=== PATIENT | male | born 1940 | race Caucasian/White ===

== ENCOUNTER 2018-09-29 09:07 | Outpatient (CLI) | payer OTHER, SELFPAY ==
[2018-09-29 12:23] LABS: Anion Gap 13.1 mmol/L (3-11); BUN 15 mg/dL (7-18); C-Reactive Protein 0.16 mg/dL (0.0-0.3); CO2 26.9 mmol/L (21.0-32.0); CREATININE 1.11 mg/dL (0.70-1.30); Chloride 102 mmol/L (98-107); Glucose 120 mg/dL (70-100); Potassium 3.8 mmol/L (3.5-5.1); Sodium 142 mmol/L (136-145); TSH 2.04 uIU/mL (0.358-3.74)
[2018-09-29 12:54] LABS: ESR 20 MM/HR (1-20)
== END 2018-09-29 09:27 ==
PROVIDERS: PCP Emergency Medicine; Visit Provider Emergency Medicine
DX: Z00.00 Encounter for general adult medical examination without abnormal findings
CPT/HCPCS: 36415; 80048; 85652; 84443; 86140

== ENCOUNTER 2018-12-27 14:40 | Outpatient (CLI) | payer OTHER, SELFPAY ==
[2018-12-27 15:32] LABS: HCT 38.4 % (40.0-50.0); Mean Corp. HGB Concentration 33.9 g/dL (32.0-36.0); Mean Corpuscular Hemoglobin 30.9 pg (27.0-33.0); Mean Corpuscular Volume 91.2 fL (80-95); Mean Platelet Volume 9.5 fL (8.0-11.0); Platelet Count 204 x1000/uL (130-400); RBC 4.21 m/cumm (4.50-6.00); White Blood Cell Count 5.74 k/cumm (4.4-10.8)
[2018-12-27 16:03] LABS: ALT 19 U/L (12-78); AST 18 U/L (15-37); Albumin 3.5 g/dL (3.4-5.0); Alkaline Phosphatase 77 U/L (46-116); Amylase 44 U/L (25-115); Anion Gap 7.3 mmol/L (3-11); BUN 15 mg/dL (7-18); Bilirubin, Total 0.4 mg/dL (0.2-1.0); CO2 27.7 mmol/L (21.0-32.0); CREATININE 1.05 mg/dL (0.70-1.30); Calcium 8.5 mg/dL (8.5-10.1); Chloride 102 mmol/L (98-107); Glucose 87 mg/dL (70-100); Lipase 146 U/L (73-393); Potassium 3.8 mmol/L (3.5-5.1); Sodium 137 mmol/L (136-145); Total Protein 6.6 g/dL (6.4-8.2)
== END 2018-12-27 15:00 ==
PROVIDERS: PCP Emergency Medicine; Visit Provider Emergency Medicine
DX: K21.9 Gastro-esophageal reflux disease without esophagitis (principal); R10.13 Epigastric pain; I10 Essential (primary) hypertension
CPT/HCPCS: 36415; 80053; 83690; 85027; 82150

== ENCOUNTER 2019-01-02 00:48 | Outpatient (CLI) | payer OTHER, SELFPAY ==
--- NOTE | 2019-01-02 08:22 | DI.CT_ITS ---
SYMPTOM/DIAGNOSIS: ABD PAIN, ABNL WT LOSS, GERD, R63.4, K21.[address]: CT scan of the abdomen and pelvis was performed following the uneventful administration of intravenous and oral contrast material. There are no priors for comparison. Comparison ultrasound is 01/08/14. Cardiomegaly is present. The dome of the liver was not included on the examination. Mild dependent atelectatic changes are seen in the lung bases. The visualized portions of the liver are unremarkable. No evidence of a hepatic mass is seen. The portal, superior mesenteric and splenic veins are patent. The patient is status post cholecystectomy. No biliary ductal dilatation is present. The pancreas is unremarkable as are the spleen and adrenal glands. The largest simple cyst is seen in the lower pole of the right kidney and measures 7.3 cm. transverse by 5.6 cm. AP. There is a complex cyst seen in the lower pole of the left kidney measuring 3.4 cm. transverse by 3.3 cm. AP. It is not homogeneously of low density and a solid mass cannot be excluded. There is a cyst in the mid pole of the left kidney measuring 3.2 by 3 cm. with thin linear calcifications in the wall. No evidence of renal obstruction is seen. The urinary bladder is intact. There is diffuse thickening of the wall of the urinary bladder. This may in part be due to decreased distension however inflammatory process or chronic changes cannot be excluded. Reproductive organs are unremarkable. There is atherosclerosis of the abdominal aorta. No aneurysmal dilatation is present. No significant abdominal or pelvic adenopathy, ascites or pneumoperitoneum is present. The bowel shows no evidence of obstruction or inflammation. No findings to suggest an acute appendicitis are present. There is a fat containing left inguinal hernia. Moderately severe degenerative changes are present throughout the lumbar spine resulting in multi level central spinal canal and neural foraminal stenosis. IMPRESSION: 1. 3.4 by 3.3 cm. complex, partially solid mass arising from the inferior pole of the left kidney. MRI with and without contrast of the kidneys shoud be considered for further evaluation. 2. Bilateral renal cysts. 3. Thickening of the wall of the urinary bladder. An acute inflammatory or infectious process cannot be excluded. Chronic bladder wall thickening should also be considered. If further imaging is warranted, cystoscopy or cystography should be considered. 4. Moderately severe degenerative changes in the lumbar spine resulting in multi level central spinal canal and neural foraminal stenosis.
[2019-01-02] MEDS: Omnipaque 350 MG/ML 100 ML BTL IJ (09:52)
== END 2019-01-02 01:08 ==
PROVIDERS: PCP Emergency Medicine; Visit Provider Emergency Medicine
DX: R10.9 Unspecified abdominal pain (principal); N28.89 Other specified disorders of kidney and ureter; N28.1 Cyst of kidney, acquired; N32.9 Bladder disorder, unspecified; I51.7 Cardiomegaly; Z90.49 Acquired absence of other specified parts of digestive tract; R63.4 Abnormal weight loss; K21.9 Gastro-esophageal reflux disease without esophagitis
CPT/HCPCS: 74177; J3490

== ENCOUNTER → 2019-01-11 10:57 | Outpatient (BNVA) | payer OTHER, SELFPAY | PROVIDERS: PCP Emergency Medicine; Referring Provider Emergency Medicine; Visit Provider Physical Therapy Assistant | DX: K21.9 Gastro-esophageal reflux disease without esophagitis (principal); I10 Essential (primary) hypertension | CPT/HCPCS: 99213 ==

== ENCOUNTER 2019-01-16 07:04 | Day surgery (SDC) | payer OTHER, SELFPAY ==
--- NOTE | 2019-01-16 06:44 | W.PM.ENDDOP ---
Date of service: 01/16/19 Time of Service: 08:03 Endoscopy Report DATE OF PROCEDURE: 01/16/19 PRE-OP DIAGNOSIS: Dysphagia POST-OP DIAGNOSIS: other (Mild inflammation of the stomach and esophagus) PROCEDURE: EGD with biopsies SURGEON: Kavitha Harrington ANESTHESIA: other (General/ ASA 2/ Je Yeung, LUCIANA) ESTIMATED BLOOD LOSS: 3 PATHOLOGY: other (antrum bx, GE junction bx) COMPLICATIONS: None DISPOSITION: same day INDICATIONS: Mr. Galdamez is a pleasant 78 year old male who was seen in the office with complaints of dysphagia. He takes Omeprazole 20 mg BID. Risks, benefits and complications have been reviewed. Complications include but are not limited to bleeding, pain, perforation, sore throat, aspiration, and adverse reaction to the medications. Questions were entertained and answered to their satisfaction and they wished to proceed. No guarantees were given or implied. PROCEDURE START TIME: 08:03 PROCEDURE END TIME: 08:09 FINDINGS: Mild inflammation of the stomach and esophagus. Doubt that this is causing his dysphagia. PROCEDURE DESCRIPTION: After informed consent was obtained the patient was take to the procedure room and placed in a supine position. Monitors were applied and a time out was done. The patients name, date of , procedure type, allergies to medications and metal in their body was reviewed. A bite block was placed and the patient was sedated. Once sedated and comfortable the gastroscope was advanced through the oropharynx which was grossly normal into the esophagus. The proximal and mid-esophagus were normal. In the distal esophagus there was very mild inflammation noted. The scope was advanced into the stomach and through the pylorus into the 3rd portion of the duodenum. The duodenum was noted to be normal. The scope was retracted back into the stomach and biopsies were done to rule out H. pylori. There was minimal inflammation noted. There were no ulcers. The scope was retro-flexed. The cardia and fundus were noted to be normal. There was no hiatal hernia noted. The scope was retracted back into the esophagus and biopsies were done of the GE junction to rule out Shields's. The Z line was regular. The GE junction was at 42 cm. The scope was removed and the patient was woken up and taken back to [facility] in stable condition. Follow up: with Dr. Hylton. If continues to have dysphagia recommend a swallowing study. Continue on Omeprazole 20 mg daily.
--- NOTE | 2019-01-16 06:47 | ENDO_ITS ---
Date of service: 01/16/19 Time of Service: 08:03 Endoscopy Report DATE OF PROCEDURE: 01/16/19 PRE-OP DIAGNOSIS: Dysphagia POST-OP DIAGNOSIS: other (Mild inflammation of the stomach and esophagus) PROCEDURE: EGD with biopsies SURGEON: Kavitha Harrington ANESTHESIA: other (General/ ASA 2/ Je Yeung, LUCIANA) ESTIMATED BLOOD LOSS: 3 PATHOLOGY: other (antrum bx, GE junction bx) COMPLICATIONS: None DISPOSITION: same day INDICATIONS: Mr. Galdamez is a pleasant 78 year old male who was seen in the office with complaints of dysphagia. He takes Omeprazole 20 mg BID. Risks, benefits and complications have been reviewed. Complications include but are not limited to bleeding, pain, perforation, sore throat, aspiration, and adverse reaction to the medications. Questions were entertained and answered to their satisfaction and they wished to proceed. No guarantees were given or implied. PROCEDURE START TIME: 08:03 PROCEDURE END TIME: 08:09 FINDINGS: Mild inflammation of the stomach and esophagus. Doubt that this is causing his dysphagia. PROCEDURE DESCRIPTION: After informed consent was obtained the patient was take to the procedure room and placed in a supine position. Monitors were applied and a time out was done. The patients name, date of , procedure type, allergies to medications and metal in their body was reviewed. A bite block was placed and the patient was sedated. Once sedated and comfortable the gastroscope was advanced through the oropharynx which was grossly normal into the esophagus. The proximal and mid- esophagus were normal. In the distal esophagus there was very mild inflammation noted. The scope was advanced into the stomach and through the pylorus into the 3rd portion of the duodenum. The duodenum was noted to be normal. The scope was retracted back into the stomach and biopsies were done to rule out H. pylori. There was minimal inflammation noted. There were no ulcers. The scope was retro-flexed. The cardia and fundus were noted to be normal. There was no hiatal hernia noted. The scope was retracted back into the esophagus and biopsies were done of the GE junction to rule out Shields's. The Z line was regular. The GE junction was at 42 cm. The scope was removed and the patient was woken up and taken back to [facility] in stable condition. Follow up: with Dr. Hylton. If continues to have dysphagia recommend a swallowing study. Continue on Omeprazole 20 mg daily.
--- NOTE | 2019-01-16 06:47 | W.PM.DSUDISC ---
Discharge Plan Disposition Patient Disposition: HOME Condition: Good Discharge Details Reason For Visit: Dysphagia Attending Provider: Kavitha Harrington Primary Care Provider: Tristin Hylton Home Meds and New Rx's Prescriptions: Continued glucosamine sulfate 1,000 MG capsule 1,000 mg PO BID RF: 0 CENTRUM SILVER TABLET 1 EACH tablet 1 tab PO DAILY RF: 0 levothyroxine [Synthroid] 50 MCG tablet 50 mcg PO DAILY Qty: 90 RF: 4 simvastatin [Zocor] 20 MG tablet 20 mg PO DAILY Qty: 90 RF: 4 hydrochlorothiazide 25 MG tablet 25 mg PO DAILY Qty: 90 RF: 4 acetaminophen [Tylenol Extra Strength] 500 MG tablet 2 tab PO daily prn RF: 0 omeprazole 20 mg capsule,delayed release(DR/EC) 20 mg PO BID Qty: 180 RF: 3 triamcinolone acetonide 0.1 % ointment 1 applic Topical BID Qty: 80 RF: 3 ketoconazole 2 % cream 1 applic Topical BID Qty: 60 RF: 3 lisinopril 40 mg tablet 40 mg PO DAILY Qty: 90 RF: 3 polyethylene glycol 3350 [Miralax] 17 gram Powder In Packet 17 g PO DAILY RF: 0 Metamucil 3.4 gram/5.4 gram Powder 1 tbsp PO DAILY RF: 0 Discharge Instructions Instructions: Upper Endoscopy (DC) Additional Instructions: Findings: very mild inflammation of the stomach Follow up: with Dr. Hylton Please call if you develop: fevers >101.5 Nausea or Vomiting Abdominal pain that is not transient DAY SURGERY UNIT POST COLONOSCOPY INSTRUCTIONS 1. Because there will be medication in your system for the next 24 hours, you may feel a little sleepy. Your coordination will be affected. Therefore: a. Do not drive or operate dangerous equipment for 24 hours. b. Do not drink alcohol beverages for 24 hours (not even beer). c. Plan to go home and rest for the day. 2. Generally there are no restrictions on your activity after a day or so has gone by, but you may feel a bit fatigued for a few days. 3 After you arrive home you may have a light meal and return to a normal diet as you can tolerate it without feeling sick to your stomach. 4. After surgery, you may feel pain or discomfort. This should be only transient, but if it persists please contact your doctor. 5. If there are any questions regarding the findings of your procedure, please feel free to contact your doctor. 6. If you are unable to contact your doctor with a problem, contact the hospital at [phone]. 7. Continue all your regular medications unless directed otherwise. I understand the above instructions and have no questions. Signature of Patient or Responsible Adult Escort Date/Time Name of Responsible Adult Escort Signature of Nurse Date/Time Activity:: Activity as Tolerated Diet:: As Tolerated Discharge Orders Discharge Orders: Discharge Order (Routine); Ordered 01/16/19 Ordered By: Kavitha Harrington DS: Diagnosis Discharge Diagnosis (1) H/O esophagogastroduodenoscopy: Status: Chronic
[2019-01-16 07:34] VITALS: BP 141/76; PULSE 68; RESP 16; TEMP 36.2; O2SAT 98
[2019-01-16] MEDS: Lactated Ringers 1,000 ML 80 ML IV (07:40)
--- NOTE | 2019-01-16 08:05 | STOM_PTH ---
PATIENT: Adilia Galdamez LOC: [facility] U#:[id number] AGE/SX: 78/M ROOM: RE01/16/[address]: Kavitha Harrington MD : [id number] BED: DIS: 01/16/2019 SPEC #: [id number] RECD: 01/16/19 12:54 STATUS: MONA REQ #: [id number] VALARIE: 01/16/19 08:[address]: Kavitha Harrington DEPT: Surgical Specimen RECD BY: Kiah Roper ENTERED: 01/16/19 12:56 SP TYPE: STOMACH OTHR DR: Tristin Hylton DO Tissues: 1 - STOMACH BIOPSY 2 - ESOPHAGUS BIOPSY Procedures: GROSS AND MICRO LEVEL 4 Comments: [id number]
[2019-01-16 08:35] VITALS: BP 121/60; PULSE 64; RESP 16; TEMP 35.8; O2SAT 97
== END 2019-01-16 09:02 | disposition home or self-care (01) ==
LOC: SUR 07:04
PROVIDERS: PCP Emergency Medicine; Visit Provider Surgery
PROC: 0DJ68ZZ Inspection of Stomach, Via Natural or Artificial Opening Endoscopic (ICD-10-PCS; CPT 43235; principal; 2019-01-16 08:00)
DX: R13.10 Dysphagia, unspecified (principal); K20.9 Esophagitis, unspecified; K31.89 Other diseases of stomach and duodenum; K21.9 Gastro-esophageal reflux disease without esophagitis; I10 Essential (primary) hypertension
CPT/HCPCS: 43239; 88305

== ENCOUNTER → 2019-01-18 10:52 | Outpatient (BNVA) | payer OTHER, SELFPAY | PROVIDERS: PCP Emergency Medicine; Referring Provider Emergency Medicine; Visit Provider Urology | DX: R93.89 Abnormal findings on diagnostic imaging of other specified body structures (principal); N28.89 Other specified disorders of kidney and ureter | CPT/HCPCS: 99203; 99215 ==

== ENCOUNTER 2019-01-30 00:41 | Outpatient (CLI) | payer OTHER, SELFPAY ==
--- NOTE | 2019-01-30 13:46 | DI.MRI_ITS ---
SYMPTOM/DIAGNOSIS: COMPLEX CYST LT KIDNEY, RENAL MASS, N28.89 ABDOMEN MRI: Pre and post contrast MRI of the kidneys was performed. Comparison CT is 01/02/19. There are multiple bilateral renal cysts. They show homogeneous hyperintense signal on the T 2 weighted images and homogeneous hypointense signal on the T 1 weighted images. Following contrast administration, there does appear to be thin rim enhancement. No solid component or internal enhancement is seen. In the inferior pole of the left kidney, there is a well circumscribed mass measuring 3.5 cm. transverse by 3.3 cm. AP by 3.3 cm. craniocaudad. It is hypointense on the T 2 weighted images and isointense to muscle on the T 1 weighted images. Following contrast administration, there is enhanced peripherally which appears mildly thickened and irregular at its posterior lateral aspect. There is no evidence of an adrenal mass. The visualized portions of the liver, pancreas and spleen are unremarkable. IMPRESSION: 3.4 cm. lesion in the inferior pole of the left kidney with thick, irregular rim enhancement seen laterally. It does not meet the criteria for a simple cyst. Cystic neoplasm cannot be entirely excluded. Follow up is recommended. Multiple simple bilateral renal cysts.
[2019-01-30] MEDS: Gadoterate meglumine 20 ML VIAL IVP (14:39)
== END 2019-01-30 01:01 ==
PROVIDERS: PCP Emergency Medicine; Visit Provider Urology
DX: N28.1 Cyst of kidney, acquired (principal); N28.89 Other specified disorders of kidney and ureter
CPT/HCPCS: 74183

== ENCOUNTER → 2019-02-12 14:40 | Outpatient (BNVA) | payer OTHER, SELFPAY | PROVIDERS: PCP Emergency Medicine; Visit Provider Urology | DX: N28.89 Other specified disorders of kidney and ureter (principal) | CPT/HCPCS: 99213 ==

== ENCOUNTER 2019-02-13 08:40 | Outpatient (CLI) | payer OTHER, SELFPAY ==
--- NOTE | 2019-02-12 15:35 | DI.RAD_ITS ---
SYMPTOM/DIAGNOSIS: RENAL MASS, N28.89, ? METS PA AND LATERAL CHEST: There are no prior comparison exams. The heart is enlarged. The aorta is tortuous. The lungs are not well inflated on the lateral view. There is basilar atelectasis on the lateral view. No mass or adenopathy is visible. IMPRESSION: Limited exam. No gross evidence of metastatic disease.
== END 2019-02-13 09:00 ==
PROVIDERS: PCP Emergency Medicine; Visit Provider Urology
DX: N28.89 Other specified disorders of kidney and ureter (principal); I51.7 Cardiomegaly; J98.11 Atelectasis
CPT/HCPCS: 71046

== ENCOUNTER 2019-03-02 10:44 | Outpatient (CLI) | payer OTHER, SELFPAY ==
[2019-03-02 12:44] LABS: Abs Immature Grans 0.01 k/cumm (0.0-0.09); Absolute Basophil Count 0.02 k/cumm (0.0-0.2); Absolute Eosinophil Count 0.29 k/cumm (0.0-0.7); Absolute Lymphocyte Count 0.73 k/cumm (1.2-3.4); Absolute Monocyte Count 0.37 k/cumm (0.11-0.7); Absolute Neutrophil Count 4.22 k/cumm (1.2-6.7); Basophils % 0.4; Eosinophils % 5.1; HCT 38.2 % (40.0-50.0); Immature Grans % 0.2; Lymphocytes % 12.9; Mean Corpuscular Hemoglobin 31.1 pg (27.0-33.0); Mean Corpuscular Volume 91.4 fL (80-95); Monocytes % 6.6; Neutrophils % 74.8; Platelet Count 185 x1000/uL (130-400); RBC 4.18 m/cumm (4.50-6.00); RBC Distribution Width 13.5 % (11.8-14.1); White Blood Cell Count 5.64 k/cumm (4.4-10.8)
[2019-03-02 13:00] LABS: ALT 20 U/L (12-78); AST 17 U/L (15-37); Albumin 3.4 g/dL (3.4-5.0); Alkaline Phosphatase 73 U/L (46-116); Anion Gap 13.1 mmol/L (3-11); BUN 18 mg/dL (7-18); Bilirubin, Total 0.5 mg/dL (0.2-1.0); CO2 25.9 mmol/L (21.0-32.0); CREATININE 0.93 mg/dL (0.70-1.30); Calcium 8.9 mg/dL (8.5-10.1); Chloride 101 mmol/L (98-107); Glucose 98 mg/dL (70-100); Magnesium 2.1 mg/dL (1.8-2.4); NT-proBNP 243 pg/mL; Potassium 3.8 mmol/L (3.5-5.1); Sodium 140 mmol/L (136-145); Total Protein 6.9 g/dL (6.4-8.2)
[2019-03-02 13:24] LABS: ESR 35 MM/HR (1-20)
== END 2019-03-02 11:04 ==
PROVIDERS: PCP Emergency Medicine; Visit Provider Emergency Medicine
DX: I50.9 Heart failure, unspecified (principal); R63.4 Abnormal weight loss
CPT/HCPCS: 36415; 80053; 85652; 83735; 83880; 85025

== ENCOUNTER 2019-03-23 01:32 | Outpatient (CLI) | payer OTHER, SELFPAY ==
--- NOTE | 2019-03-23 10:24 | MERGE_ITS ---
*[facility]* *[facility]* [address] [place] [address] Date of study: 03/23/2019 Transthoracic Echocardiography M-mode, complete 2D, complete spectral Doppler, and color Doppler *STUDY CONCLUSIONS* Impressions: Low normal LV function, dilated ascending aorta, mild to moderate AR. Summary: 1. Left ventricle: The cavity size was normal. Wall thickness was increased in a pattern of mild LVH. There was mild asymmetric hypertrophy. Systolic function was at the lower limits of normal. The estimated ejection fraction was 50-55%. Wall motion was normal; there were no regional wall motion abnormalities. 2. Aortic valve: There was mild to moderate regurgitation directed eccentrically in the LVOT and towards the mitral anterior leaflet. 3. Mitral valve: Mildly calcified annulus. Mildly thickened leaflets. 4. Left atrium: The atrium was moderately to severely dilated. 5. Right ventricle: The cavity size was normal. Wall thickness was normal. Systolic function was normal. 6. Right atrium: The atrium was moderately dilated. 7. Pulmonary arteries: Pulmonary systolic pressure was within the normal range. *PATIENT PRESENTATION* Height: 180.3cm ((71in) ) S/D Pressure: 150 / 90 Weight: 97.5kg ((214.5lb) ) BSA: 2.23m^2 Test start time: 10:24 AM. Test stop time: 11:20 AM. ORDERING Tristin Hylton REFERRING Tristin Hylton PERFORMING Unknown PERFORMING [facility] TECHNICAL AID Kari Springer *PROCEDURE DATA* Procedure information: This study was interpreted by [facility]. Pertinent images and digital data are archived for permanent storage and are available for subsequent review. No prior study was available for comparison. Study status: Routine. Transthoracic echocardiography. M-mode, complete 2D, complete spectral Doppler, and color Doppler. A Transthoracic Echocardiogram was performed. Scanning was performed from the parasternal, apical, subcostal, and suprasternal notch acoustic windows. Images were obtained using an Easy Voyage 2000 cardiac ultrasound machine. Image quality was adequate. Study completion: The patient tolerated the procedure well. History: PMH: Cardiomegaly. *CARDIAC ANATOMY* Left ventricle: The cavity size was normal. Wall thickness was increased in a pattern of mild LVH. There was mild asymmetric hypertrophy. Systolic function was at the lower limits of normal. The estimated ejection fraction was 50-55%. Wall motion was normal; there were no regional wall motion abnormalities. Some parameters suggest diastolic dysfunction. Aortic valve: Trileaflet; normal thickness leaflets. Mobility was not restricted. Doppler: Transvalvular velocity was within the normal range. There was no stenosis. There was mild to moderate regurgitation directed eccentrically in the LVOT and towards the mitral anterior leaflet. VTI ratio of LVOT to aortic valve: 0.78. Valve area (VTI): 3.2cm^2. Indexed valve area (VTI): 1.5cm^2/m^2. Peak velocity ratio of LVOT to aortic valve: 0.68. Valve area (Vmax): 2.8cm^2. Indexed valve area (Vmax): 1.3cm^2/m^2. Mean velocity ratio of LVOT to aortic valve: 0.58. Valve area (Vmean): 2.4cm^2. Indexed valve area (Vmean): 1.1cm^2/m^2. Mean gradient (S): 4.6mm Hg. Peak gradient (S): 7.8mm Hg. Aorta: Aortic root: The aortic root was mildly dilated. Ascending aorta: The ascending aorta was moderately dilated. Aortic arch: The aortic arch was at upper normal limits. Mitral valve: Mildly calcified annulus. Mildly thickened leaflets. Mobility was not restricted. Doppler: Transvalvular velocity was within the normal range. There was no evidence for stenosis. There was trivial regurgitation. Valve area by pressure half-time: 1.7cm^2. Indexed valve area by pressure half-time: 0.8cm^2/m^2. Left atrium: The atrium was moderately to severely dilated. Right ventricle: The cavity size was normal. Wall thickness was normal. Systolic function was normal. Pulmonic valve: Poorly visualized. Doppler: Transvalvular velocity was within the normal range. There was no evidence for stenosis. There was no significant regurgitation. Peak gradient (S): 4.4mm Hg. Tricuspid valve: Structurally normal valve. Doppler: Transvalvular velocity was within the normal range. There was no evidence for stenosis. There was mild regurgitation. Pulmonary artery: Poorly visualized. Pulmonary systolic pressure was within the normal range. Right atrium: The atrium was moderately dilated. Pericardium: There was no pericardial effusion. Systemic veins: Inferior vena cava: The vessel was normal in size. Measurements Left ventricle Value Reference LV ID, ED, PLAX 5.4 cm 3.5 - 6.0 LV ID, ES, PLAX 3.7 cm 2.1 - 4.0 LV PW thickness, ED, PLAX 1.1 cm LV end-diastolic volume, 1-p A2C 147 ml LV ejection fraction, 1-p A2C 44 % LV end-diastolic volume, 1-p A4C 164 ml LV ejection fraction, 1-p A4C 53 % LV e', lateral 0.054 m/sec LV E/e', lateral 10 LV e', medial 0.058 m/sec LV E/e', medial 9 LV e', average 0.056 m/sec LV E/e', average 9 Ventricular septum Value Reference IVS thickness, ED, PLAX 1.6 cm LVOT Value Reference LVOT ID, A-P 2.3 cm LVOT area 4.2 cm^2 LVOT peak velocity, S 0.95 m/sec LVOT mean velocity, S 0.61 m/sec LVOT VTI, S 22.5 cm LVOT peak gradient, S 3.6 mm Hg LVOT mean gradient, S 1.8 mm Hg Stroke volume (SV), LVOT DP 94 ml Stroke index (SV/bsa), LVOT DP 42 ml/m^2 Aortic valve Value Reference Aortic valve peak velocity, S 1.4 m/sec Aortic valve mean velocity, S 1.04 m/sec Aortic valve VTI, S 29.0 cm Aortic mean gradient, S 4.6 mm Hg Aortic peak gradient, S 7.8 mm Hg VTI ratio, LVOT/AV 0.78 Aortic valve area, VTI 3.2 cm^2 Velocity ratio, peak, LVOT/AV 0.68 Aortic valve area, peak velocity 2.8 cm^2 Velocity ratio, mean, LVOT/AV 0.58 Aortic valve area, mean velocity 2.4 cm^2 Aortic valve area/bsa, mean velocity 1.1 cm^2/m^2 Aorta Value Reference Aortic root ID, ED 4.1 cm Ascending aorta ID, A-P, S 4.4 cm Aortic arch ID, innominate-LCCA 3.6 cm 2.0 - 3.6 Left atrium Value Reference LA ID, A-P, ES 5.0 cm LA ID/bsa, A-P (H) 2.3 cm/m^2 <=2.2 LA area, ES, A4C (H) 30.6 cm^2 8.8 - 23.4 LA area, ES, A2C 32 cm^2 LA volume/bsa, S 53 ml/m^2 LA volume, ES, 2-p 108 ml LA volume/bsa, ES, 2-p 48 ml/m^2 LA/aortic root ratio 1.23 Mitral valve Value Reference Mitral E-wave peak velocity 0.52 m/sec Mitral A-wave peak velocity 0.62 m/sec Mitral deceleration time (H) 435 ms 150 - 230 Mitral pressure half-time 126 ms Mitral E/A ratio, peak 0.84 Mitral valve area, PHT, DP 1.7 cm^2 Pulmonary arteries Value Reference PA pressure, S, DP 28 mm Hg <=30 Tricuspid valve Value Reference Tricuspid regurg peak velocity 2.4 m/sec Tricuspid peak RV-RA gradient 22.4 mm Hg Right atrium Value Reference RA area, ES, A4C (H) 25.1 cm^2 8.3 - 19.5 Systemic veins Value Reference Estimated CVP 10 mm Hg Right ventricle Value Reference RV pressure, S, DP (H) 32 mm Hg <=30 Pulmonic valve Value Reference Pulmonic peak gradient, S 4.4 mm Hg Legend: (L) and (H) barbara values outside specified reference range. I have personally reviewed the images and have reviewed and edited the reported findings. Electronically signed by Van Leong 03/23/2019 15:59
== END 2019-03-23 01:52 ==
PROVIDERS: PCP Emergency Medicine; Visit Provider Emergency Medicine
DX: I51.7 Cardiomegaly (principal); I50.9 Heart failure, unspecified; I10 Essential (primary) hypertension; I35.1 Nonrheumatic aortic (valve) insufficiency
CPT/HCPCS: 93306

== ENCOUNTER 2019-05-29 00:21 | Outpatient (CLI) | payer OTHER, SELFPAY ==
--- NOTE | 2019-05-29 07:45 | DI.US_ITS ---
SYMPTOM/DIAGNOSIS: F/U RENAL MASS, N28.89 RENAL ULTRASOUND: Comparison is made with MRI of the abdomen dated 01/30/19. Again noted are multiple bilateral renal cysts. There is a solid appearing mass at the lower pole of the left kidney which measures 3.2 cm. in greatest dimension, unchanged in size when compared with the previous MRI. No vascularity is demonstrated. There is no hydronephrosis or calcifications visible of either kidney. No perinephric collections are seen. The prevoid bladder volume measured 48 cc's. The patient was unable to void. No bladder wall thickening is seen. Both ureteral jets were visualized. The prostate volume is 30 cc's. IMPRESSION: Stable size of mass at the lower pole of the left kidney.
== END 2019-05-29 00:41 ==
PROVIDERS: PCP Emergency Medicine; Visit Provider Urology
DX: N28.89 Other specified disorders of kidney and ureter (principal); N28.1 Cyst of kidney, acquired
CPT/HCPCS: 76770; 99213

== ENCOUNTER 2019-07-27 07:00 | Outpatient (CLI) | payer OTHER, SELFPAY ==
[2019-07-27 12:06] LABS: ESR 22 mm/hr (1-20)
[2019-07-27 13:33] LABS: TSH 1.55 uIU/mL (0.36-3.74)
== END 2019-07-27 07:20 ==
PROVIDERS: PCP Emergency Medicine; Visit Provider Emergency Medicine
DX: E03.9 Hypothyroidism, unspecified (principal); M79.10 Myalgia, unspecified site
CPT/HCPCS: 36415; 85652; 84443

== ENCOUNTER 2019-09-25 01:00 | Outpatient (CLI) | payer OTHER, SELFPAY ==
--- NOTE | 2019-09-25 13:45 | DI.US_ITS ---
EXAM: US RENAL CLINICAL HISTORY: monitor known renal mass N28.89 TECHNIQUE: Matamoros scale, color and spectral Doppler were used. COMPARISON: US renal from 05/29/2019 FINDINGS: Renal size in cm: Right: 14.6 left: 13.8 Echogenicity: Normal Hydronephrosis: No Cyst or mass: Simple cysts on the right kidney. The largest measures 6.7 x 3.9 x 6.4 centimeters. S imple cysts on the left kidney. The largest measures 4.7 x 4.3 x 4.7 centimeters. There is a solid mass again seen in the inferior pole of the left kidney. On the current examination, it measures 3.9 x 3.4 x 3.5 centimeters. This compares to 3.2 x 3 x 3.1 centimeters on the prior examination. Nephrolithiasis: No Other findings: None Bladder:Normal Prevoid vol:209 cc Postvoid vol:51 cc Ureteral jets: Right and left both identified. Prostatic volume: 53 cc IMPRESSION: 1. Interval increase in size of solid mass in the inferior pole of the left kidney. 2. Bilateral renal cysts. 3. Enlarged prostate gland.
== END 2019-09-25 01:20 ==
PROVIDERS: PCP Emergency Medicine; Visit Provider Urology
DX: N28.89 Other specified disorders of kidney and ureter (principal); N28.1 Cyst of kidney, acquired; N40.0 Benign prostatic hyperplasia without lower urinary tract symptoms; I10 Essential (primary) hypertension
CPT/HCPCS: 76770; 99213

== ENCOUNTER 2019-10-03 14:20 | Outpatient (CLI) | payer OTHER, SELFPAY | END 2019-10-03 14:40 | PROVIDERS: PCP Emergency Medicine; Visit Provider Emergency Medicine | DX: R00.1 Bradycardia, unspecified (principal); I47.1 Supraventricular tachycardia; I48.91 Unspecified atrial fibrillation | CPT/HCPCS: 93225 ==

== ENCOUNTER 2019-10-05 08:27 | Outpatient (CLI) | payer OTHER, SELFPAY ==
--- NOTE | 2019-10-05 09:44 | W.HOLTRPT ---
Date of service: 10/05/19 Time of Service: 09:45 Holter Monitor Report Holter Monitor Note: This is a 24-hour Holter monitor ordered for the indication of bradycardia. ?The patient was in normal sinus rhythm for the majority of the recording. ?Patient's mean heart rate was 69. The patient had 2 significant bradycardic events with a minimum rate of 26 bpm that lasted a total of 10 seconds. ?There were 9 episodes of supraventricular tachycardia with the longest lasting 175 beats. There were occasional (4.6%) premature atrial contractions. There was one run of multiple PACs lasting 3 beats. ?There were no episodes of ventricular tachycardia. There were occasional (1.1%) single ventricular ectopic beats. ?There were 2 episodes of atrial fibrillation the longest lasting 22 minutes. ?There were no episodes of high degree heart block. ?The longest pause was 2.6 seconds.
== END 2019-10-05 08:47 ==
PROVIDERS: PCP Emergency Medicine; Visit Provider Emergency Medicine
DX: R00.1 Bradycardia, unspecified (principal); I48.91 Unspecified atrial fibrillation; I47.1 Supraventricular tachycardia
CPT/HCPCS: 93227; 93226

== ENCOUNTER 2019-10-15 08:41 | Outpatient (CLI) | payer OTHER, SELFPAY | END 2019-10-15 09:01 | PROVIDERS: PCP Emergency Medicine; Visit Provider Internal Medicine Cardiovascular Disease | DX: I35.1 Nonrheumatic aortic (valve) insufficiency (principal); I43 Cardiomyopathy in diseases classified elsewhere; I11.9 Hypertensive heart disease without heart failure | CPT/HCPCS: 99203; 99214; 93005; 93010 ==

== ENCOUNTER 2019-12-28 02:55 | Outpatient (CLI) | payer OTHER, SELFPAY ==
--- NOTE | 2019-12-28 12:30 | DI.US_ITS ---
EXAM: US RENAL CLINICAL HISTORY: monitor left lower pole mass N28.89 DISORDER OF KIDNEY AND URETER TECHNIQUE: Ultrasound performed using standard protocol. COMPARISON: CT ABDOMEN PELVIS W from 01/02/2019 US RENAL from 09/25/2019 FINDINGS: The prevoid bladder volume measures 157 cc. There is a 13 cc postvoid residual. Both ureteral jets were visualized. The prostate volume is 32 cc. Right kidney measures 13.3 cm in length. The left k idney measures 10 cm in length. No bladder mass or calculi are seen. There are multiple bilateral r enal cysts. A solid mass is demonstrated at the lower pole of the left kidney which is measured at 2 .9 x 3.1 x 3.8 cm. No stones or hydronephrosis is seen. IMPRESSION: Stable size of mass at the lower pole of the left kidney given differences in measurement error. DATA REPOSITORY:
== END 2019-12-28 03:15 ==
PROVIDERS: PCP Emergency Medicine; Visit Provider Urology
DX: N28.89 Other specified disorders of kidney and ureter (principal); N28.1 Cyst of kidney, acquired; I10 Essential (primary) hypertension
CPT/HCPCS: 76770; 99213

== ENCOUNTER → 2020-03-21 14:55 | Outpatient (BNVA) | payer OTHER, SELFPAY | PROVIDERS: PCP Emergency Medicine; Referring Provider Emergency Medicine; Visit Provider Internal Medicine Cardiovascular Disease | DX: I35.1 Nonrheumatic aortic (valve) insufficiency (principal); I11.9 Hypertensive heart disease without heart failure; I43 Cardiomyopathy in diseases classified elsewhere | CPT/HCPCS: 99212; 99441 ==

== ENCOUNTER 2020-04-22 01:42 | Outpatient (CLI) | payer OTHER, SELFPAY ==
--- NOTE | 2020-04-22 08:15 | DI.US_ITS ---
EXAM: US RENAL CLINICAL HISTORY: monitor size of solid renal mass, N28.89. TECHNIQUE: [place] scale, color and spectral Doppler were used. COMPARISON: US US RENAL from 12/28/2019 FINDINGS: Renal size in cm: Right: 13.5 left: 12.5 Echogenicity: Normal. Hydronephrosis: No. Cyst or mass: Solid avascular mass in the medial left kidney. It measures 3.3 AP by 3.2 cc by 3.2 tr ansverse cm. This compares to 3.1 AP by 2.9 cc by 3.8 transverse cm. There are multiple bilateral s imple cysts. Nephrolithiasis: No. Other findings: None. Bladder:Normal. Ureteral jets: Right: Visualized and unremarkable. Left: Visualized and unremarkable. Prevoid vol:190 cc Postvoid vol:16 cc Prostate: 32 cc IMPRESSION: 1. No significant increase in size of the solid left renal mass. 2. Bilateral simple renal cysts. DATA REPOSITORY:
== END 2020-04-22 02:02 ==
PROVIDERS: PCP Emergency Medicine; Visit Provider Urology
DX: N28.89 Other specified disorders of kidney and ureter (principal); N28.1 Cyst of kidney, acquired; I10 Essential (primary) hypertension
CPT/HCPCS: 76770; 99213

== ENCOUNTER 2020-04-22 02:02 | Outpatient (CLI) | payer OTHER, SELFPAY ==
--- NOTE | 2020-04-22 10:10 | DI.US_ITS ---
APPROVED REPORT EXAM: Comprehensive 2D, Doppler, and color-flow Echocardiogram Patient Location: Out-Patient Tailman: Kari Springer RDCS (AE) Indications: Aortic Insufficiency Other Information Study Quality: Good Conclusion Left Ventricle : The left ventricle is normal size. The left ventricular systolic function is normal. The left ventricular ejection fraction is within the normal range. There is normal left ventricular wall thickness. There is normal LV segmental wall motion. The left ventricular diastolic function is normal. LVEF is 50%. Right Ventricle : The right ventricle is normal size. The right ventricular systolic function is norm al. The RVSP is 26 mmHg. Atria : Left atrium is moderately dilated. Right atrium is mildly dilated. Aortic Valve : The Aortic valve is sclerotic. Aortic valve is trileaflet. There is no aortic valvular stenosis. Moderate aortic regurgitation. Aortic regurgitation jet is eccentric. Mitral Valve : There is mitral annular calcification. No evidence of mitral valve stenosis. Mild mitr al regurgitation. Great Vessels : Aortic root is moderately dilated. The ascending aorta is moderate to severely dilate d (4.4cm). IVC is normal in size and collapses >50% with inspiration. Echocardiogram from 03/23/2019: There is no significant change. Wall motion Left Ventricle The left ventricle is normal size. The left ventricular systolic function is normal. The left ventric ular ejection fraction is within the normal range. There is normal left ventricular wall thickness. T here is normal LV segmental wall motion. The left ventricular diastolic function is normal. There is no ventricular septal defect visualized. LVEF is 50%. Right Ventricle The right ventricle is normal size. The right ventricular systolic function is normal. The RVSP is 26 mmHg. Atria Left atrium is moderately dilated. Right atrium is mildly dilated. The interatrial septum is intact w ith no evidence for an atrial septal defect. The atrial septum is aneurysmal. Aortic Valve The Aortic valve is sclerotic. Aortic valve is trileaflet. There is no aortic valvular stenosis. Mode rate aortic regurgitation. Aortic regurgitation jet is eccentric. Mitral Valve There is mitral annular calcification. No evidence of mitral valve stenosis. Mild mitral regurgitatio n. Tricuspid Valve The tricuspid valve is normal in structure. There is no tricuspid valve stenosis. Trace tricuspid reg urgitation. Pulmonic Valve The pulmonary valve is normal in structure. There is no pulmonic valvular stenosis. There is no pulmo maddy valvular regurgitation. Great Vessels Aortic root is moderately dilated. The ascending aorta is moderate to severely dilated (4.4cm). IVC i s normal in size and collapses >50% with inspiration. Pericardium There is no pericardial effusion. There is no pleural effusion. 2D Dimensions IVSD d PLAX 1.10 cm M: 0.6-1.2 LV Vol A2C d MOD 122.3 mL LVPW d PLAX 1.14 cm M: 0.6 - 1.2 LV Vol A4C d MOD 128.2 mL LVID d PLAX 5.39 cm M: 4.2 - 5.8 LA vol/ BSA A2C s A-L 42.9 mL/m2 LVDs 3.95 cm M: 2.5 - 4.0 LA vol/ BSA A4C s A-L 38.4 mL/m2 Ao Root d 4.10 cm M: 3.1 - 3.7 LA Vol/ BSA Biplane s A-L 41.8 mL/m2 RA Area A4C 25.29 cm2 LA Area A4C s MOD 25.54 cm2 RA Vol/ BSA A4C s A-L 31.0 mL/m2 LA Area A2C s MOD 27.82 cm2 Ao Asc Diam d 4.41 cm M: 2.6 - 3.4 LV EF A4C MOD 49.5 % LV EF Teichholz 50.9 % LV EF A2C MOD 49.3 % LVEF (Dyer's) 50.47 % M: 52 - 72 LV EF Biplane MOD 50.5 % LV Volume 94.00 mL M: 62 - 150 SV 64.79 mL LV Volume Index 43.72 mL/m2 M: 34 - 74 SV Index 30.09 mL/m2 LV Vol Biplane MOD 128.4 mL FS 26.15 % M-Mode TAPSE 2.60 cm (M/F) >1.7 LV Diastology MV E' medial 0.069 (>0.07 m/s) E/A Ratio 2.1 LV E/e MED 13.75 (<14) MV E Vmax 0.95 (0.4-1.3 m/s) MV E' lateral 0.108 (>0.1 m/s) MV A Vmax 0.45 (0.4-1.3 m/s) LV E/e LAT 8.85 (<14) MV E/A Ratio 2.05 MV E/E' medial 13.76 MV E/E' lateral 8.86 Aortic Valve LVOT Area 3.88 cm2 AoV Area Vmax 2.33 cm2 LVOT Vmax 1.07 m/s AoV Area/ BSA (Vmax) 1.08 cm2/m2 LVOT Mean Michi. 0.67 m/s TILA Mean Michi. 2.33 cm2 LVOT Peak Grad 4.6 mmHg TILA Mean Michi. Index 1.08 cm2/m2 LVOT Mean Grad 2.1 mmHg AR DT 2989 msec LVOT VTI 0.239 m AR PHT 867 msec LVOT Diam s 2.20 cm AoV Vmax 1.78 m/s Velocity Ratio 0.60 AoV Mean Michi. 1.11 m/s AoV Peak Grad 12.7 mmHg LVOT SV 92.77 mL AoV Mean Grad 5.9 mmHg AoV VTI 0.316 m AoV Area VTI 2.93 cm2 AoV Area/ BSA (VTI) 1.36 cm/m2 Mitral Valve MV DT 265 (160-240 msec) MR Vmax 5.01 m/s MV PHT 77 msec MR VTI 1.615 m MV Area PHT 2.86 cm2 MR Peak Grad 100.4 mmHg MR Mean Grad 70.2 mmHg MR PISA Radius 0.55 cm MR EROA 0.14 cm2 MR Aliasing Velocity 0.35 m/s MR PISA 1.93 cm2 Pulmonary Valve PV Vmax 1.04 (0.5-1.5 m/s) RVOT Peak Gr. 2.19 mmHg PV Peak Grad 4.4 mmHg RVOT Mean Gr. 0.95 mmHg PV Mean Grad 2.3 mmHg RVOT VTI 0.150 m PV VTI 0.216 m RVOT Vmax 0.74 m/s Tricuspid Valve TR Peak Grad 22.9 mmHg TR Vmax 2.40 m/s RA Pressure 3.00 mmHg RVSP (TR) 26.0 mmHg
== END 2020-04-22 02:22 ==
PROVIDERS: PCP Emergency Medicine; Visit Provider Internal Medicine Cardiovascular Disease
DX: I35.1 Nonrheumatic aortic (valve) insufficiency (principal); I11.9 Hypertensive heart disease without heart failure; I77.810 Thoracic aortic ectasia; I51.7 Cardiomegaly
CPT/HCPCS: 93306

== ENCOUNTER → 2020-05-09 12:47 | Outpatient (BNVA) | payer OTHER, SELFPAY | PROVIDERS: PCP Emergency Medicine; Referring Provider Emergency Medicine; Visit Provider Physical Therapy Assistant | DX: R10.32 Left lower quadrant pain (principal); R19.4 Change in bowel habit; I10 Essential (primary) hypertension | CPT/HCPCS: 99213 ==

== ENCOUNTER 2020-05-16 03:46 | Outpatient (CLI) | payer OTHER, SELFPAY ==
--- NOTE | 2020-05-16 09:33 | DI.MRI_ITS ---
EXAM: MR LUMBAR SPINE WO CLINICAL HISTORY: Spinal stenosis and sciatica LT SIDE, M54.32,M48.00. TECHNIQUE: Multiplanar multisequence MRI of the Lumbar spine was performed. COMPARISON: CT CT ABDOMEN PELVIS W from 01/02/2019 FINDINGS: Bones: The last intervertebral disc space is designated the L5/S1 level for the numbering purpose of this examination. The vertebral body heights are well maintained. There is a scoliosis of the lumba r spine. A focus of hyperintense signal is seen on both the T1 and T2 weighted images in the L1 vert ebral body most suggestive of a hemangioma. Degenerative endplate signal changes are present at mult iple levels of the lumbar spine. There is a transitional vertebra labeled S1 for this examination. Cord: The conus tip ends at the L1 level. It is of normal size and signal intensity. T12-L1: No disc herniations or bulges are present. No central spinal canal or neural foraminal stenos is. L1-2: No disc herniations or bulges are present. No central spinal canal or right neural foraminal st enosis. Mild left neural foraminal stenosis. L2-3: Mild diffuse disc bulge. Degenerative changes of the facet and ligamentum flavum. Mild narrow ing of the central spinal canal. Mild right and moderate left neural foraminal stenosis. L3-4: There is a diffuse disc bulge. Hypertrophic changes of the facets and ligamentum flavum are pr esent.There is moderately severe central spinal canal stenosis. There is moderately severe bilateral neural foraminal stenosis. L4-5: There is a diffuse disc bulge. There are hypertrophic changes of the facets and ligamentum fla vum. Moderate central spinal canal stenosis is present. There is moderate bilateral neural foramina l stenosis. L5-S1: No disc herniations or bulges are present. There are hypertrophic changes of the facets. No s ignificant central spinal canal stenosis is seen. Mild bilateral neural foraminal narrowing is prese nt. Soft tissues: The visualized SI joints and sacrum are well maintained. The paraspinal soft tissues ar e unremarkable. Bilateral renal cysts are again noted. IMPRESSION: 1. Multilevel degenerative changes in the lumbar spine resulting in central spinal canal and neural f oraminal stenosis. 2. The findings are most marked at the L3-4 and L4-L5 disc levels. 3. Bilateral renal cysts. 4. Please see the above discussion for complete details. DATA REPOSITORY:
== END 2020-05-16 04:06 ==
PROVIDERS: PCP Emergency Medicine; Visit Provider Emergency Medicine
DX: M48.061 Spinal stenosis, lumbar region without neurogenic claudication (principal); M54.32 Sciatica, left side; M47.816 Spondylosis without myelopathy or radiculopathy, lumbar region
CPT/HCPCS: 72148

== ENCOUNTER → 2020-05-22 13:46 | Outpatient (BNVA) | payer OTHER, SELFPAY | PROVIDERS: PCP Emergency Medicine; Referring Provider Emergency Medicine; Visit Provider Internal Medicine Cardiovascular Disease | DX: I35.1 Nonrheumatic aortic (valve) insufficiency (principal); Z01.810 Encounter for preprocedural cardiovascular examination; I11.9 Hypertensive heart disease without heart failure; I43 Cardiomyopathy in diseases classified elsewhere | CPT/HCPCS: 99213 ==

== ENCOUNTER 2020-07-08 08:53 | Outpatient (CLI) | payer OTHER, SELFPAY ==
[2020-07-08 09:18] VITALS: BP 128/71; PULSE 64; RESP 16; TEMP 36.7; O2SAT 98
[2020-07-08] MEDS: methylPREDNISolone ACETATE 80 MG/ML VIAL IJ (09:50)
[2020-07-08] MEDS: Omnipaque 240 MG/ML 50 ML BTL IJ (09:50)
--- NOTE | 2020-07-08 09:52 | DI.RAD_ITS ---
EXAM: XR PAIN CLINIC LUMBAR SP 2V CLINICAL HISTORY: Dx: Lumbar Radiculopathy, EPIDURAL STEROID INJECTION TECHNIQUE: 2D and realtime digital imaging was performed. Fluoroscopy was provided in the OR COMPARISON: No exams were available for comparison FINDINGS: C-arm fluoroscopy was utilized by Dr. Blount during reported lumbar epidural steroid injection. Hard copywriter ies show epidural injection at what appears to be the L5. Fluoro time 19.5 seconds IMPRESSION: RADIATION DOSE DELIVERED: Total DLP
--- NOTE | 2020-07-08 09:58 | PDOC.PAIN ---
Pain Clinic Procedure Note Procedure Note Procedure Note: Lumbar Epidural Steroid Injection Procedure Note Pre-operative diagnosis: lumbar spinal stenosis with neurogenic claudication Post-operative diagnosis: same as above COMMENTS:patient reports prior lumbar decompressive laminectomy by Dr Knowles, in 2018 he was having right anterior thigh pain which was alleviated after right L3 TFESI by Dr Coyne and Dr Dela Cruz, he now reports slow return of his right leg pain, but more noticeable after ambulation and right hip and calf pain, some right anterior thigh pain. patient was seen by Ms Ciara Young who recommended a course of L5-S1 LESI targeting the right side. HONG PEREZ has been referred to the [facility] for lumbar epidural steroid injection. The patient was greeted by the nurse who verified patients name and . Patient was then taken to the fluoroscopy suite. The patient was interviewed and the medial record reviewed. There were no medical, pharmacologic, radiographic, or other structural contraindications to attempting fluoroscopically guided lumbar epidural steroid injection. Risks and expected side effects as well as potential benefits of the procedure were reviewed and voiced concerns expressed. The patient consent form was signed and witnessed. Standard patient time-out procedure was performed. The patient was placed in the prone position on the fluoroscopy table and automated blood pressure cuff and pulse oximeter applied. The skin entry point for entering/approaching the epidural space by a L5-S1 and marked. Following thorough chlorhexadine preparation of the skin and draping and 1% lidocaine infiltration of the skin entry point and subcutaneous tissues, a 18 gauge Touhy needle was placed under fluoroscopic guidance and with loss of resistance technique into the epidural space. Needle tip placement and depth were aided and confirmed by fluoroscopy. There was no paresthesia or return of blood or CSF through the needle. 1 cc's of Omnipaque 240 was injected with clear epidural spread confirmed with fluoroscopy. 80mg depomedrol was injected. There was not any unusual discomfort expressed by HONG PERZE. Patient's vital signs were stable throughout the procedure and were as recorded in nursing records. Follow up plans and appointments were discussed with patient. Post procedure instruction was given as documented in nursing records and having met discharge criteria and was discharged from the [facility]. COMMENTS: patient reports prior lumbar surgeries, there is a healed surgical scar. x-ray shows intact laminar at L5-S1, there is no distinct loss of resistance once Touhy was engaged in ligamentum flavum, would recommend for future to utilize cuadal JEFRY approach if targeting the lower lumbar interlaminar space. I personally performed the entire proceudre. Jaiden Blount MD Pain Management
[2020-07-08 10:04] VITALS: BP 156/74; PULSE 73; RESP 22; O2SAT 99
== END 2020-07-08 09:13 ==
PROVIDERS: PCP Emergency Medicine; Visit Provider Internal Medicine
DX: M48.062 Spinal stenosis, lumbar region with neurogenic claudication (principal)
CPT/HCPCS: 62321; 72100; J1040; Q9967

== ENCOUNTER → 2020-07-17 13:52 | Outpatient (BNVA) | payer OTHER, SELFPAY | PROVIDERS: PCP Emergency Medicine; Referring Provider Emergency Medicine; Visit Provider Physical Therapy Assistant | DX: R10.32 Left lower quadrant pain (principal); I10 Essential (primary) hypertension ==

== ENCOUNTER 2020-07-24 10:11 | Day surgery (SDC) | payer OTHER, SELFPAY ==
[2020-07-24 10:22] VITALS: BP 163/86; PULSE 70; RESP 18; TEMP 36.7; O2SAT 95
[2020-07-24] MEDS: Lactated Ringers 1,000 ML 80 ML IV (10:48)
--- NOTE | 2020-07-24 11:59 | W.COLOREPORT ---
Date of service: 07/24/20 Time of Service: 11:59 Colonoscopy Report Date of procedure: 07/24/20 Pre-op diagnosis general: change in bowels habits Post-op diagnosis procedure note: other (hemorrhoids) Surgeon: Sugey Coulter Anesthesia proc note operative: GETA Estimated blood loss (mL): 0 Pathology: none sent Complications: None Disposition: same day Prep: Miralax/Dulcolax Retraction Time: 10 Procedure Description: After informed consent was obtained the patient was taken to the procedure room and placed in a left decubitous position. Monitors were applied and a time out was done. The patients name, date of , procedure, allergies to medications and metal in their body was reviewed. The patient was then sedated. Once sedated and comfortable a rectal exam was done: . External exam was normal. Internal exam revealed a normal sphincter tone and no palpable masses. The prostate [no. The scope was then introduced and retrofelexed. internal hemorrhoids were identified. The scope was then advanced to the cecum s difficulty. The TI and appendiceal orifice were identified. The prep was adequate. The scope was then slowly retracted over 10 minutes back into the rectum. there are no polyps/avm's/diverticula apparent. He does have signif hemorrhoidal dx. The scope was removed and the patient was woken up and taken back to Same day surgery in stable condition. The patient tolerated the procedure well and there were no immediate complications. Follow up: The patient does not need to have a CE repeated, unless they develop changes in bowel habits or other new gastrointestinal complaints.
--- NOTE | 2020-07-24 12:03 | PDOC.DSDIS_ITS ---
Discharge Plan Disposition Patient Disposition: HOME Discharge Details Reason For Visit: colon scope Attending Provider: Sugey Coulter Primary Care Provider: Tristin Hylton Home Meds and New Rx's Prescriptions: Continued omeprazole 20 mg capsule,delayed release(DR/EC) 20 mg PO BID Qty: 180 RF: 3 lisinopril 40 mg tablet 40 mg PO DAILY Qty: 90 RF: 3 glucosamine sulfate 1,000 MG capsule 1,000 mg PO BID RF: 0 CENTRUM SILVER TABLET 1 EACH tablet 1 tab PO DAILY RF: 0 acetaminophen [Tylenol Extra Strength] 500 MG tablet 2 tab PO daily prn RF: 0 triamcinolone acetonide 0.1 % ointment 1 applic Topical BID Qty: 80 RF: 3 ketoconazole 2 % cream 1 applic Topical BID Qty: 60 RF: 3 hydrochlorothiazide 25 mg tablet 25 mg PO DAILY Qty: 90 RF: 4 levothyroxine [Synthroid] 50 mcg tablet 50 mcg PO DAILY Qty: 90 RF: 4 rosuvastatin [Crestor] 10 mg tablet 10 mg PO DAILY Qty: 90 RF: 3 polyethylene glycol 3350 17 gram/dose powder 238 g PO ONCE Qty: 238 RF: 0 Changed Metamucil 3.4 gram/5.4 gram Powder 1 tbsp PO BID Qty: 0 RF: 0 Discontinued bisacodyl [Dulcolax (bisacodyl)] 5 mg tablet,delayed release (DR/EC) 5 mg PO ONCE Qty: 4 RF: 0 polyethylene glycol 3350 [Miralax] 17 gram Powder In Packet 17 g PO DAILY RF: 0 Discharge Instructions Additional Instructions: Findings: hemorrhoids Follow up:consider having hemorrhoid banding- significant increase Metamucil to twice a day. Please call if you develop: fevers >101.5 Nausea or Vomiting Abdominal pain that is not transient DAY SURGERY UNIT POST COLONOSCOPY INSTRUCTIONS 1. Because there will be medication in your system for the next 24 hours, you may feel a little sleepy. Your coordination will be affected. Therefore: a. Do not drive or operate dangerous equipment for 24 hours. b. Do not drink alcohol beverages for 24 hours (not even beer). c. Plan to go home and rest for the day. 2. Generally there are no restrictions on your activity after a day or so has gone by, but you may feel a bit fatigued for a few days. 3 After you arrive home you may have a light meal and return to a normal diet as you can tolerate it without feeling sick to your stomach. 4. After surgery, you may feel pain or discomfort. This should be only transient, but if it persists please contact your doctor. 5. If there are any questions regarding the findings of your procedure, please feel free to contact your doctor. 6. If you are unable to contact your doctor with a problem, contact the hospital at [phone]. 7. Continue all your regular medications unless directed otherwise. I understand the above instructions and have no questions. Signature of Patient or Responsible Adult Escort Date/Time Name of Responsible Adult Escort Signature of Nurse Date/Time High Fiber Diet What is Dietary Fiber? All fiber comes from plants, bushes, bhargavi or trees. Of course, the ones that we eat provide us with fruits, vegetables and grains. There are many different types of fiber but the three that are most important to the health of the body are: Insoluble Fiber This fiber does not dissolve in water, nor is it fermented by the bacteria residing in the colon. Rather, it retains water and in so doing, helps to promote a larger, bulkier and more regular bowel activity. This, in turn, may be important in preventing disorder such as diverticulosis and hemorrhoids, and in sweeping out certain toxins and cancer causing carcinogens. Sources of insoluble fiber are: ? whole grain wheat and other whole grains ? corn bran, including popcorn, unflavored and unsweetened ? nuts and seeds ? potatoes and the skins from most fruits from trees such as apples, bananas and avocados ? many green vegetables such as green beans, zucchini, celery and cauliflower ? some fruit plants such as tomatoes and kiwi Soluble Fiber These fibers are fermented or used by the colon bacteria as a food source or nourishment. When these good bacteria grow and thrive, many health benefits occur in both the colon and the body. Soluble fiber is present in some degree in most edible plant foods, but the ones with the most soluble fiber include: ? legumes such as peas and most beans, including soybeans ? oats, rye and barley ? many fruits such as berries, plums, apples bananas and pears ? certain vegetables such as broccoli and carrots ? most root vegetables ? psyllium husk supplement products Prebiotic Soluble Fiber These are relatively newly discovered soluble plant fibers. The technical name for this fiber is inulin or fructan. When these soluble fibers are fermented by the good colon bacteria, some further significant health benefits have been shown to occur by research in many medical centers. These soluble prebiotic fibers occur in significant amounts in: ? asparagus ? yams ? onions ? garlic ? bananas ? leeks ? agave ? chicory and other root vegetables such as [place] artichokes ? wheat, rye and barley (smaller amounts) Benefits of a High Fiber Diet The health benefits of a high fiber diet, consumed on a regular basis and reaching recommended amounts (below), are now fairly well-defined. There are some additional benefits in the early research stage with the prebiotic soluble fibers. What is now known regarding a high fiber diet include: Bowel Regularity A high fiber diet promotes regularity with a softer, bulkier and regular stool pattern. This decreases the chance of hemorrhoids, diverticulosis and perhaps colon cancer. Cholesterol and Reduced Triglycerides The soluble fibers are the ones that will reduce cholesterol levels when used on a regular basis. Psyllium husk and prebiotic soluble fiber will also reduce cholesterol. They may also reduce the incidence of coronary heart disease. Oats, flax seeds and legumes or beans are the recommended fibers. Colon Polyps and Cancer It is still not certain if a high fiber diet helps prevent colon cancer. Considerable research suggests that this may occur. Certainly it makes sense to increase regularity and so speed the movement of cancer causing carcinogens through the bowel. In addition, reducing a heavy meat diet reduces the bile flow from the liver in a favorable way. This, too, reduces the amount of carcinogens that reach and are manufactured in the colon. Finally, a high fiber diet, including prebiotic soluble fiber, increases the integrity and health of the wall of the colon. The risk of cancer may be reduced. Colon Wall Integrity A high fiber diet changes the bacterial makeup of the colon toward a more favorable balance. For instance, it is known that those people with obesity, diabetes type 2 and inflammatory bowel disease have a predominance of bad bacteria in the colon. This, in turn, may render the bowel wall weak and allow bacteria and, indeed, even toxins to seep through. A high fiber diet with a modest reduction in animal and meat products may return the bacterial makeup to a more positive balance. This, in particular, has been seen when the soluble fiber prebiotics are added to the diet. Blood Sugar Soluble fiber such as in legumes (beans), oats and in prebiotic fibers slows the absorption of blood sugar and so helps regulate the sugar in the blood. Insoluble fiber on a regular basis is associated with reduced risk of type 2 diabetes. Weight Loss High fiber diets are more filling and give a sense of fullness sooner than an animal and meat based diet does. In addition, the soluble prebiotic fibers have been shown to turn off the hunger hormones produced in the wall of the gut and to increase the hormones that give a sense of fullness. Those hormones are made in the wall of the gut. New medical research has shown that the bacterial makeup in the colon in overweight people is abnormal to the extent that they manufacture and absorb almost twice the number of calories through the colon wall as do normals. Prebiotic fibers (below) will help change this hormonal balancein a favorable way. Bacteria and the Function of the Colon The colon finishes the digestive process. Hopefully, the waste products move through in a nice regular manner. Insoluble fibers help this process by retaining water and so producing a bulkier, softer stool, which is easy to pass. The additional role of the colon is to provide a home for an enormous number of micro-organisms, mostly bacteria. Recent research has shown that there are over 1,000 species of bacteria with a total bacterial count ten times the number of cells in the body. These bacteria play a major role in keeping the colon wall itself healthy. In addition, these good bacteria produce a very strong immune system for the body. They significantly increase calcium absorption and bone density. They provide other documented benefits. It is the soluble fibers in the diet that are so effective in stimulating the growth of good colon bacteria. How Much is Enough? The amount of fiber in food is measured in grams. National nutritional authorities recommend the following amounts of dietary fiber daily. Under Age 50 Over Age 50 Men 38 grams 30 grams Women 25 grams 21 grams For a week or so, it is best to tally the amount of fiber you are consuming. Boxed and packaged foods will have the amount of fiber per serving on the nutrition label. Which Fibers and Which Foods are Best? As noted, healthy fiber is only found in plants. The three major categories are whole grains, fruits and vegetables. Whole Grains Wheat, oats, barley, wild or brown rice, amaranth, buckwheat, bulgur, corn, millet, quinoa, rye, sorghum, teff and triticals. By far, wheat, oats and wild or brown rice are most common. Always buy whole grain products. White bread, baked goods and rolls almost always are made from wheat flour. Wheat flour is white because most of the fiber, vitamins and other nutrients have been removed. Try not buy enriched grains. What this means is that simple white flour has had vitamins added to it by the sales and service change leader. The word, enriched, implies a good and healthy product. On the contrary, enriched means that most of the fiber has been removed and a few vitamins added. Fruits Fruits come from trees such as apple and pear or from bushes or bhargavi. You should eat a wide variety of fruits, preferably with every meal. In many cases, the skin of a fruit such as apple will contain much of the insoluble fiber while the pulp contains most of the soluble fiber. To the extent possible, buy organic fruits as these will have little or no pesticides. Always wash fruit. Vegetables Eat a wide variety of vegetables. They should be a mainstay of lunch and dinners. Frozen vegetables retain as much nutrition and fiber as fresh vegetables. As with fruit, try to buy organic to reduce any residual pesticide ingestion. Wash fresh vegetables thoroughly. Cruciferous vegetables such as broccoli, [place] sprouts and cauliflower contain certain chemicals such as sulforaphane. This substance has very strong anti-cancer properties and should be eaten frequently. Legumes, Beans, Peas and Soybeans These vegetables have plenty of soluble fiber and should be part of a varied vegetable intake. Beans, in particular, contain a certain type of fiber that may lead to harmless gas or bloating. Nuts and Seeds These are rich sources of fiber and are a good substitute for sweets such as candies and baked sweet goods. While nuts and seeds are rich in fiber, they also contain vegetable fat and so can and do add calories. Read the Labels As noted, fresh and frozen foods are usually better. They have good nutrition and few, if any, chemicals added to them. When buying packaged foods and, in particular grains, look for three things: ? The first word on the label should be whole, such as whole wheat or whole grain. ? Check out the calories and the amount of fiber in a serving. ? How many and what other additives or chemicals are added. Fewer is always better. Do you know what each additive does? Some are added not for the benefit of the grain buyer but rather for manufacturers. These could and do include sugar, artificial flavor, chemicals to prevent oxidation and spoilage, emulsifiers to blend the product. You have to be a it auditor. Fiber Facts, Nuggets and Pearls ? For breakfast you can easily get the day started well by using a high fiber, whole grain cereal. Check the labels. Add fruit such as blueberries and bananas. If you are an egg eater, use whole wheat or grain toast. Adding wheat germ gives you a good fiber kick. ? Always use whole grain or wheat with rolls and sandwiches. Does your fast food store not have them? Perhaps you look elsewhere. Eating an occasional black her or veggie burger provides variety. ? Snacks should consist of fruit and/or nuts. While nuts are loaded with fiber, they are an energy rich food, meaning they have a lot of calories in a small packet. ? Fruit juices should contain pulp. Clear juices such as clear orange, pear or apple juice contain little fiber and have a lot of fructose. Prune juice is usually high in fiber. ? Homemade soups ? adding fresh or frozen vegetables to a chicken or vegetable stock is a good way to start homemade soup. ? Salads ? adding cooked and then chilled vegetables provide great flavoring to almost any salad. Remember, a turcios salad has lots of cooked corn in it. Small slices of apples or oranges and nuts such as chopped walnuts or sliced almonds always adds taste, variety and fiber to almost any salad. ? Fruit ? Try to eat fruit of some type with almost every meal. ? Rethink how you place the various foods on your dinner plate. Reducing the portions of the meat or animal food portion to the side with equal or more portions of vegetables, legumes and fruits portion always allows for more fiber. There was never anything magic about making the meat or animal food portion the main part of the dinner plate. Eating from smaller plates can, over time, trick your mind and termite control technician habit of using a dinner plate. Again, there is nothing magic in an 11, 12, or 13 inch dinner plate. Fiber Supplements There are a variety of fiber supplements available on the food or pharmacy shelves. Psyllium This soluble plant fiber has been used in [place] for over 2,000 years. It is a soluble fiber with mucilage in it. This acts to retain a lot of water and also is fermented by colon bacteria. When 7 grams a day are used, it does lower cholesterol. Metamucil in various forms is psyllium. Methyl Cellulose All the cellulose products come from finely ground wood chips which are then treated in a variety of ways such as boiling in acids. Methyl cellulose is an insoluble fiber which does dissolve in water. It is also an emulsifier, meaning it blends oils and water. Citrucel is methyl cellulose (MC). MC may not be appropriate for Crohn?s disease or ulcerative colitis as several medical studies have shown that certain emulsifiers dissolve the mucous lining of the colon in animals prone to Crohn?s disease. This then allows bacteria to invade the underlying tissue. Inulin Inulin is a soluble prebiotic fiber found in many foods and which are fermented mostly in the left side of the colon. It is available in a supplement as generic inulin and in Fiber Choice. Oligofructose FOS These are also prebiotic fibers. They are fermented very quickly in the right side of the colon. Prebiotin This product is a combination of oligofructose, which feeds the bacteria in the right side of the colon and inulin, which does the same in the left side of the colon. There seems to be a benefit for this particular formula based on medical research. Prebiotic Soluble Fiber These may be the healthiest of all the soluble fibers. They grow in many plants and have had a great deal of research done on them in the last 10-15 years. These fibers are found in asparagus, yams and other root vegetables such as chicory, garlic, onion, leeks and in smaller amounts in wheat. This research has shown the following: ? Increase in good and decrease in bad colon bacteria ? Increase calcium absorption and enhanced bone mass ? Enhanced immune system ? Appetite and weight control by changing the hormone appetite signals to the brain ? May decrease colon cancer incidence ? Reduce or correct a leaky colon Eating a wide variety of plant food up to the recommended amount will likely give you enough prebiotic fiber. Supplements such as Prebiotin can be added to the diet. Short Chain Fatty Acids (SCFA) Some rather remarkable research findings have shown that one of the benefits of ingesting a lot of soluble fiber, in particular the prebiotic ones, results in larger amounts of SCFAs in the colon. These SCFAs are made by the good bacteria in the colon such as Bifidobacter and Lactobacillus. These small molecules have been shown to do the following: ? Enhance the health and integrity of the colon wall ? Provide nourishment for the cells that actually line the colon ? Increases the acidity of the colon which is a very real health benefit ? Stabilize blood sugar for diabetics ? Reduce blood cholesterol and triglyceride ? Significantly enhance immunity ? May be a benefit for Crohn?s disease and ulcerative colitis patients Fiber and Gas Everyone has intestinal gas and that is a good thing. It means that bacteria, hopefully the good ones, are thriving. The normal amount of flatus passed each day depends on sex and what is eaten. The normal number of flatus is 10-20 times a day. When the bacteria that make intestinal gases are growing, it also means that other good bacteria are using the same fibers to grow and produce multiple health benefits, including the production of healthy short-chain fatty acids. These substances are produced quietly in the colon and produce many health-related outcomes. Soluble fiber should always be used in a gradual manner. If too much is consum ed at any one time, then excess, but harmless, intestinal gas can occur. People with irritable bowel syndrome are particularly prone to bloating and mild cramping. In this instance, soluble fiber in the diet or supplement should be used in small doses and increased gradually. Finally, prebiotic fibers tend to cause the production of short-chain fatty acids which acidify the colon. This, in turn, reduces or stops the growth of bacteria that make the smelly hydrogen sulfide gases that produce noxious flatus. People who consume many vegetables with prebiotics or take a prebiotic fiber supplement often have non-odoriferous flatus. Fiber and Irritable Bowel Syndrome Irritable bowel syndrome (IBS) is one of the most common disorders of the lower digestive tract. The symptoms of IBS can be quite varied. They can be a mix of several symptoms such as constipation, diarrhea, crampy abdominal discomfort, bloating and gas. An attack of IBS can be triggered by emotional tension and anxiety, poor dietary habits and certain medications. It is now known that infections in the intestine can lead to long-term IBS symptoms. Increased amounts of fiber in the diet can help relieve the symptoms of irritable bowel syndrome by producing soft, bulky stools. This helps to normalize the time it takes for the stool to pass through the colon. Recent medical research with newer techniques has shown some surprising and dramatic findings for IBS patients. Specifically, there is a very significant and abnormal shift of bacteria from those that provide health benefits to those bad bacteria that we really do not want in the gut. The technical name for this bad group of bacteria is called Firmicutes. Along with this abnormal bacterial collection, there is a smoldering low-grade inflammation in the gut wall that may contribute to symptoms. The goal for IBS patients should be to gradually increase the soluble dietary fibers in the diet so as to promote the growth of good bacteria and so suppress the bad ones along with the associated inflammation. IBS patients need to be careful of the amount of soluble fiber they consume. The reason for this is that, while the good colon bacteria thrive on these fibers and produce health benefits, other gas-forming bacteria may generate excessive but harmless gas and subsequent bloating. Thus, soluble plant fibers or a dietary prebiotic supplement should be taken in small initial doses and then gradually increased to tolerance. Fiber and Colon Polyps/Cancer Colon cancer is a major health problem. This disease is most common in Western cultures. It is not seen very often in rural cultures where the diet is mostly plant based. Usually, colon cancer starts out as a colon polyp, a benign mushroom-shaped growth. In time it grows, and in some people it becomes cancerous. Colon cancer is usually always curable if polyps are removed when found or if surgery is performed at an early stage. It is now known that people can inherit the risk of developing colon cancer, but diet is important, too. As noted, there is a very low rate of colon cancer in residents of countries where grains are unprocessed and retain their fiber. It seems that in the [place] world, cancer-containing agents (carcinogens) remain in contact with the colon wall for a longer time and in higher concentrations. So, a large bulky stool may act to dilute these carcinogens by moving them through the bowel more quickly. Less carcinogenic exposure to the colon may mean fewer colon polyps and less cancer. A very current review of the entire world?s literature on the effect of fiber on colon polyps and cancer prevention has shown rather clearly that for every 10 grams of fiber added to the diet, there is a 10% reduction in incidence of colon cancer. So the recommended 30 gram fiber diet would result in a 30% less chance of getting these tumors. There are also substances produced in the colon by the good bacteria that seem to retard certain pre-cancer factors from developing. They are called short- chain fatty acids (SCFA). See above for description of SCFAs. A high fiber diet increases these substances. So, the combination of dietary fiber and the pro duction of short-chain fatty acids have a clear health benefit. Fiber and Diverticulosis Prolonged, vigorous contraction of the colon over a long period of time may result in diverticulosis. This increased pressure causes small and, eventually, larger ballooning pockets to form. These pockets by themselves cause no problem. However, sometimes they become infected (diverticulitis) or even break open (perforate) causing infection or inflammation within the abdomen (peritonitis). A high fiber diet increases the bulk in the stool and thereby reduces the pressure within the colon. By so doing, the formation of pockets may be reduced or possibly even stopped. In the past, many physicians were fearful that seeds as in tomatoes, nuts or berries were harmful and could get inside these pockets and rattle around, causing damage. We now know that this has never been the case and that these foods contain lots of fiber and are actually beneficial for diverticulosis patients. Certain bulking agents such as psyllium are traditional types of bulk producing supplements. Psyllium is a soluble fiber. Combining it with insoluble fiber as in wheat bran or corn bran (no gluten) can enhance this bulking effect even more. A product containing a prebiotic, psyllium and wheat bran is probably a very good combination for bowel regularity. Prebiotin Regularity/Diverticulosis is one such product. Inflammatory Bowel Disease (IBD) IBD means Crohn?s Disease (CD) or Ulcerative Colitis (UC). CD is an inflammation of the lower small bowel and/or the colon. Bacteria actually invade and cause inflammation in the entire wall of the intestine. UC, on the other hand, is an inflammation just of the lining of the colon. It usually starts in the rectum and left colon and may spread to the entire colon from there. It is now known that in both CD and UC that the bacterial make up is abnormal. This means that there are significantly more of the bad bacteria present than the good ones. These abnormal bacteria are called Firmicutes. Fiber and Crohn?s Disease There is now some information in the medical literature on what type of diet may be harmful and what may help Crohn?s Disease. A reduction in red meat is likely helpful. So is reducing the fat in the diet, including vegetable oils. More importantly, people who had low fiber ingestion in the diet had a greater chance of getting CD. So, a gradual increase in the amount of fiber is likely helpful in hopefully preventing CD. This should always be done in conjunction with the physician. It should be done gradually and should include soluble fibers which fertilize the best colon bacteria. The good bacteria grow and push out the bad ones. These good bacteria provide short chain fatty acids, which can help heal the bowel wall. Prebiotics such as Prebiotin are available. Fiber and Ulcerative Colitis We still do not have strong evidence in the medical literature on what is the best diet for UC. Eating plenty of soluble fiber, including prebiotic fibers will nourish the best colon bacteria. It is hoped that this will result in a decrease in the bad or Firmicutes bacteria. It is well-known that when the good bacteria proliferate that they produce lots of acid substances called short chain fatty acids (SCFA). The SCFAs actually nourish the cells of the colon wall, the very ones that become inflamed in UC. In addition, when the colon contents become acid, the smelly sulfide gases are not produced and the flatus becomes less noxious and may even have no smell at all. This may have a beneficial effect on the inflammation. Prebiotics such as Prebiotin are the best type of soluble fiber. Activity:: no lifting over 20#'s or strenuous acitivity x 24 hrs Diet:: small light meals x 24hrs Discharge Orders Discharge Orders: Discharge Order (Routine); Ordered 07/24/20 Ordered By: Sugey Coulter DS: Diagnosis Discharge Diagnosis (1) Internal and external bleeding hemorrhoids: Status: Acute
[2020-07-24 12:19] VITALS: BP 132/78; PULSE 65; RESP 20; TEMP 36.5; O2SAT 96
== END 2020-07-24 12:45 | disposition home or self-care (01) ==
PROVIDERS: PCP Emergency Medicine; Visit Provider Surgery
PROC: 0DJD8ZZ Inspection of Lower Intestinal Tract, Via Natural or Artificial Opening Endoscopic (ICD-10-PCS; CPT 45378; principal; 2020-07-24 10:45)
DX: R19.4 Change in bowel habit (principal); I10 Essential (primary) hypertension; K64.9 Unspecified hemorrhoids; Z79.899 Other long term (current) drug therapy
CPT/HCPCS: 45378

== ENCOUNTER 2020-08-04 07:11 | Day surgery (SDC) | payer OTHER, SELFPAY ==
[2020-08-04 07:19] VITALS: BP 146/73; PULSE 50; RESP 17; TEMP 36.8; O2SAT 96
--- NOTE | 2020-08-04 09:06 | W.PM.OP ---
Date of service: 08/04/20 Time of Service: 09:07 Operative Note Operative Note DATE OF PROCEDURE: 08/04/20 PRE-OP DIAGNOSIS: I & E hemorrhoids POST-OP DIAGNOSIS: other (banding of I hemorrhoid only ) ANESTHESIA: local ESTIMATED BLOOD LOSS: 1 PATHOLOGY: other COMPLICATIONS: None Patient was transported to: same day Patient's condition: stable Procedure Description: Mr. Worley is here today for internal hemorrhoid banding these were noted on his recent colonoscopy. He also has inflamed external hemorrhoids as well. He does not today think about those today. Consent was obtained explaining risks and benefits of the procedure include not limited to bleeding infection recurrence damage to sphincters and pain. Patient brought to the procedure room and placed in the left lateral decubitus position the area is anesthetized with 3 cc of quarter percent Marcaine with epi is prepped with Betadine and bands are applied to the 1 quadrant prolapsing hemorrhoid there is no bleeding noted patient the procedure well and was discharged home with instructions in wound care activity and warning signs. He can use Tylenol and warm sits baths. He will follow-up in 2 weeks.
--- NOTE | 2020-08-04 09:08 | W.PM.DSUDISC ---
Discharge Plan Disposition Patient Disposition: HOME Condition: Good Discharge Details Reason For Visit: hemorrhoid banding Attending Provider: Sugey Coulter Primary Care Provider: Tristin Hylton Home Meds and New Rx's Prescriptions: New hydrocortisone [Anusol-HC] 2.5 % cream with perineal applicator 1 applic NH BID-QID PRNQty: 30 RF: 12 ibuprofen 600 mg tablet 600 mg PO Q6H PRNQty: 60 RF: 12 No Action omeprazole 20 mg capsule,delayed release(DR/EC) 20 mg PO BID Qty: 180 RF: 3 lisinopril 40 mg tablet 40 mg PO DAILY Qty: 90 RF: 3 glucosamine sulfate 1,000 MG capsule 1,000 mg PO BID RF: 0 CENTRUM SILVER TABLET 1 EACH tablet 1 tab PO DAILY RF: 0 acetaminophen [Tylenol Extra Strength] 500 MG tablet 2 tab PO daily prn RF: 0 triamcinolone acetonide 0.1 % ointment 1 applic Topical BID Qty: 80 RF: 3 ketoconazole 2 % cream 1 applic Topical BID Qty: 60 RF: 3 hydrochlorothiazide 25 mg tablet 25 mg PO DAILY Qty: 90 RF: 4 levothyroxine [Synthroid] 50 mcg tablet 50 mcg PO DAILY Qty: 90 RF: 4 rosuvastatin [Crestor] 10 mg tablet 10 mg PO DAILY Qty: 90 RF: 3 Metamucil 3.4 gram/5.4 gram Powder 1 tbsp PO BID Qty: 0 RF: 0 Discharge Instructions Instructions: Hemorrhoids (GEN), Rubber Band Ligation (GEN) Additional Instructions: Home Care Instructions after Rectal Surgery Pain/muscle spasms are normal after surgery. Use anusol cream as needed for swelling. It takes oral pain meds an hour to take effect. Alternate between: 1000mg of Tylenol by mouth every 8 hrs, and Advil 600mg by mouth every 6hr. Always take Advil w/ food. Do not take Advil on an empty stomach. The first bowel movement after surgery will be painful. Do not let yourself get constipated. Stay on a stool softener while you are on the narcotics. It is recommended that you use a fiber supplement (Metamucil, Citrucel) daily (1 tablespoon in 8 oz of water). If you do not have a bowel movement daily, use Milk of Magnesia or Miralax. It is normal to have bleeding or drainage after rectal surgery; especially when you move your bowels. Use a sanitary napkin to collect the discharge. If you are passing large clots or having to change the pad more than every 4 hours, call the clinic or go to the ER. You may experience spasms in the rectal muscles. This is normal after surgery and last for about two weeks. They can become more intense with bowel movements. You can also try sitz bathes (sitting in a bath tub of PLAIN lukewarm water; soap can add to rectal irritation). It is ok to shower. Avoid soap on the surgical area. Follow a mild bland diet. Avoid alcohol, spicy food, citrus, and tomatoes. Avoid strenuous activity (running, jogging, and power walking, swimming, weight lifting) for two weeks. No lifting over 20 pounds for 2 weeks. No driving x 72 hrs or cannot turn or twist your body without hesitation. Urinary retention is common. Sit in a warm tub to try to relax the bladder. If you are unable to urinate after 8 hours, call the office or go to the ER. Stand Alone Forms: Kofi Montes De [facility] (DSU) Activity:: no lifting over 20#'s for 1 week Diet:: As Tolerated Discharge Orders Discharge Orders: Discharge Order (Routine); Ordered 08/04/20 Ordered By: Sugey Coulter DS: Diagnosis Discharge Diagnosis (1) Internal and external bleeding hemorrhoids: Status: Acute
== END 2020-08-04 09:55 | disposition home or self-care (01) ==
PROVIDERS: PCP Emergency Medicine; Visit Provider Surgery
PROC: (CPT 46221; principal; 2020-08-04 08:00)
DX: K64.8 Other hemorrhoids (principal)
CPT/HCPCS: 46221

== ENCOUNTER → 2020-08-22 09:25 | Outpatient (BNVA) | payer OTHER, SELFPAY | PROVIDERS: PCP Emergency Medicine; Referring Provider Emergency Medicine; Visit Provider Surgery | DX: Z48.815 Encounter for surgical aftercare following surgery on the digestive system (principal); K64.4 Residual hemorrhoidal skin tags; I10 Essential (primary) hypertension | CPT/HCPCS: 99212 ==

== ENCOUNTER → 2020-10-07 12:12 | Outpatient (BNVA) | payer OTHER, SELFPAY | PROVIDERS: PCP Emergency Medicine; Referring Provider Emergency Medicine; Visit Provider Internal Medicine Cardiovascular Disease | DX: I49.9 Cardiac arrhythmia, unspecified (principal); E78.5 Hyperlipidemia, unspecified; I11.9 Hypertensive heart disease without heart failure; I43 Cardiomyopathy in diseases classified elsewhere; I35.1 Nonrheumatic aortic (valve) insufficiency; I48.0 Paroxysmal atrial fibrillation | CPT/HCPCS: 99214 ==

== ENCOUNTER 2020-10-30 00:49 | Outpatient (CLI) | payer OTHER, SELFPAY ==
--- NOTE | 2020-10-30 07:30 | DI.US_ITS ---
EXAM: US RENAL CLINICAL HISTORY: monitor known left solid mass,N28.89 TECHNIQUE: Ultrasound of both kidneys performed using standard protocol. COMPARISON: CT CT ABDOMEN PELVIS W from 01/02/[address] ABDOMEN PELVIS W from 01/02/2019 MR MR ABDOMEN WO/W from 01/30/2019 MR MR ABDOMEN WO/W from 01/30/2019 US US ECHOCARDIOGRAM from 04/22/2020 US US RENAL from 04/22/2020 US US RENAL from 04/22/2020 FINDINGS: RIGHT KIDNEY: Measures 12.3 cm in length. Large cyst in the inferior pole measuring 5.8 x 3.9 x 5.1 centimetres, pr eviously documented on MRI. Normal cortical thickness and corticomedullary differentiation .No solid masses No intrarenal calculi nor hydronephrosis. LEFT KIDNEY: Measures 11.0 cm in length. Multiple cysts, previously documented. Largest cysts are at midpole lev el measuring 4.5 x 4.5 x 5.3 centimeters and 3.6 x 3.2 x 3.9 centimeter. There is a solid exophytic lesion seen off the inferior pole left kidney measuring 4.6 x 4.2 x 4.0 centimetres. This is not a s imple benign cyst. This is slightly increased in size from measurement on the CT scan of December 2018. Also slightly increased size from measurement of ultrasound April 22, 2020. Normal cortical thickness and corticomedullary differentiaion. No solids masses. No intrarenal calcu li nor hydonephrosis. URINARY BLADDER: Prevoid volume 99 cc. Postvoid volume was similar. Patient apparently was not abl e to void Prostate gland: 57 cc IMPRESSION: 1. Bilateral cysts in both kidneys again noted. 2. The size of the hemorrhagic cyst or solid lesion which is exophytic off the inferior pole of the left kidney is slightly increased in size from the prior measurements listed above. DATA REPOSITORY:
== END 2020-10-30 01:09 ==
PROVIDERS: PCP Emergency Medicine; Visit Provider Urology
DX: N28.1 Cyst of kidney, acquired (principal)
CPT/HCPCS: 76770

== ENCOUNTER → 2020-11-03 15:26 | Outpatient (BNVA) | payer OTHER, SELFPAY | PROVIDERS: PCP Emergency Medicine; Referring Provider Emergency Medicine; Visit Provider Nurse Practitioner Gerontology | DX: N28.89 Other specified disorders of kidney and ureter (principal) | CPT/HCPCS: 99213 ==

== ENCOUNTER → 2020-11-17 08:53 | Outpatient (BNVA) | payer OTHER, SELFPAY | PROVIDERS: PCP Emergency Medicine; Referring Provider Emergency Medicine; Visit Provider Surgery | DX: Z48.815 Encounter for surgical aftercare following surgery on the digestive system (principal); K64.8 Other hemorrhoids | CPT/HCPCS: 99213 ==

== ENCOUNTER 2021-03-06 13:48 | Outpatient (REF) | payer OTHER, SELFPAY ==
[2021-03-06 20:58] LABS: Anion Gap 8.5 mmol/L (3-11); BUN 16 mg/dL (7-18); CO2 29.5 mmol/L (21.0-32.0); Calcium 8.8 mg/dL (8.5-10.1); Chloride 106 mmol/L (98-107); Glucose 112 mg/dL (74-106); Potassium 3.7 mmol/L (3.5-5.1); Sodium 144 mmol/L (136-145); TSH 1.67 uIU/mL (0.36-3.74)
== END 2021-03-06 13:49 | disposition home or self-care (01) ==
LOC: LBN 13:48
PROVIDERS: PCP Emergency Medicine; Visit Provider Emergency Medicine
DX: I10 Essential (primary) hypertension (principal); E03.9 Hypothyroidism, unspecified
CPT/HCPCS: 80048; 84443

== ENCOUNTER → 2021-04-06 13:11 | Outpatient (BNVA) | payer OTHER, SELFPAY | PROVIDERS: PCP Emergency Medicine; Referring Provider Emergency Medicine; Visit Provider Internal Medicine Cardiovascular Disease | DX: I35.1 Nonrheumatic aortic (valve) insufficiency (principal); I48.0 Paroxysmal atrial fibrillation; Z79.01 Long term (current) use of anticoagulants; I12.9 Hypertensive chronic kidney disease with stage 1 through stage 4 chronic kidney disease, or unspecified chronic kidney disease; I50.9 Heart failure, unspecified | CPT/HCPCS: 99214 ==

== ENCOUNTER 2021-05-07 02:02 | Outpatient (CLI) | payer OTHER, SELFPAY ==
--- NOTE | 2021-05-07 09:30 | DI.US_ITS ---
Exam(s) US RENAL EXAM: US RENAL CLINICAL HISTORY: monitoring renal mass,N28.89 TECHNIQUE: Ultrasound of both kidneys performed using standard protocol. COMPARISON: CT CT ABDOMEN PELVIS W from 01/02/2019 MR MR LUMBAR SPINE WO from 05/16/2020 US US RENAL from 10/30/2020 Lumbar spine MRI performed April 2020 was reviewed FINDINGS: RIGHT KIDNEY: Measures 11 cm in length. There is a 5 by 6 cm cyst in the inferior pole of the right kidney again no aleshia. Normal cortical thickness and corticomedullary differentiation .No solid masses No intrarenal calculi nor hydronephrosis. LEFT KIDNEY: Measures 9.8 cm in length. This kidney is again noted to contain multiple cysts. The largest at the midpole level measuring approximately 5 x 5 cm. With respect to the inferior pole finding (which is different from the others), this presently has a combined solid-cystic appearance a measures 3.7 x 3 .8 x 3.9 cm, with minimal if any signal size change. May represent hemorrhagic cyst but cannot rule out possibly that this may be neoplastic URINARY BLADDER: Prevoid volume is 109 cc Postvoid volume is cc No evidence of bladder mass nor diverticuli. Ureterovesical jets: Both identified and appear symmetrical IMPRESSION: 1. Bilateral renal cysts, again more numerous in the left kidney. 2. In a lower pole left kidney there is a partially solid partially cystic nodule again noted measur ing 3.9 x 3.8 x 3.7 cm which is suspicious for possible neoplasm. No obvious abnormality in the urinary bladder DATA REPOSITORY:
== END 2021-05-07 02:22 ==
PROVIDERS: PCP Emergency Medicine; Visit Provider Nurse Practitioner Gerontology
DX: N28.1 Cyst of kidney, acquired (principal)
CPT/HCPCS: 76770

== ENCOUNTER → 2021-05-13 15:13 | Outpatient (BNVA) | payer OTHER, SELFPAY | PROVIDERS: PCP Emergency Medicine; Referring Provider Emergency Medicine; Visit Provider Nurse Practitioner Gerontology | DX: N28.89 Other specified disorders of kidney and ureter (principal) | CPT/HCPCS: 99214 ==

== ENCOUNTER 2021-06-02 19:17 | Outpatient (REF) | payer OTHER, SELFPAY ==
[2021-06-02 19:59] LABS: Abs Immature Grans 0.03 10^3/uL (0.0-0.06); Absolute Basophil Count 0.02 10^3/uL (0.0-0.2); Absolute Eosinophil Count 0.11 10^3/uL (0.0-0.7); Absolute Lymphocyte Count 0.96 10^3/uL (1.2-3.4); Absolute Monocyte Count 0.38 10^3/uL (0.1-0.8); Absolute Neutrophil Count 4.27 10^3/uL (1.2-6.7); Basophils % 0.3; Bilirubin Negative (Negative); Blood Trace-intact (Negative); Clarity Clear (Clear); Eosinophils % 1.9; Glucose Negative (Negative); HGB 14.3 g/dL (13.5-17.5); Immature Grans % 0.5; Ketones Negative (Negative); Leukocyte Esterase Negative (Negative); Lymphocytes % 16.6; MCHC 33.3 % (32.0-36.0); MCV 93.1 fL (80-95); MPV 10.1 fL (8.0-11.0); Monocytes % 6.6; Neutrophils % 74.1; Nitrite Negative (Negative); Nucleated RBC 0 %; Platelet Count 155 10^3/uL (130-400); RBC 4.62 10^6/uL (4.36-5.78); RDW 13.4 % (11.8-14.1); RDW-SD 45.7 fL; Urobilinogen 0.2 EU/dL (Up TO 0.2); WBC 5.77 10^3/uL (4.4-10.8); pH 6.5 (5-8)
[2021-06-02 20:07] LABS: ESR 12 mm/hr (0-20)
[2021-06-02 20:11] LABS: INR 1.1 (0.9-1.1); Prothrombin Time 11.5 sec (9.3-11.0)
[2021-06-02 20:13] LABS: ALT 26 U/L (16-63); AST 20 U/L (15-37); Albumin 4.1 g/dL (3.4-5.0); Alkaline Phosphatase 71 U/L (46-116); BUN 16 mg/dL (7-18); Bilirubin, Total 0.8 mg/dL (0.2-1.0); C-Reactive Protein 0.12 mg/dL (0.0-0.3); CREATININE 0.9 mg/dL (0.70-1.30); Calcium 8.9 mg/dL (8.5-10.1); Chloride 106 mmol/L (98-107); Glucose 68 mg/dL (74-106); Potassium 3.9 mmol/L (3.5-5.1); Sodium 144 mmol/L (136-145); Total Protein 7.1 g/dL (6.4-8.2)
[2021-06-02 20:15] LABS: Bacteria Negative HPF (Negative); C & S Indicated? No; Casts Negative LPF (Negative); Crystals Negative HPF (Negative); Epithelial Cells Negative HPF (Negative); Mucus Negative (Negative); Other Cells Negative (Negative); RBC 0-2 HPF (0-2); WBC 0-2 HPF (0-5)
== END 2021-06-02 19:18 | disposition home or self-care (01) ==
LOC: LBN 19:17
PROVIDERS: PCP Emergency Medicine; Visit Provider Physician Assistant
DX: D69.2 Other nonthrombocytopenic purpura (principal)
CPT/HCPCS: 80053; 85652; 81003; 81015; 85025; 85610; 85730; 86140

== ENCOUNTER 2021-08-05 02:19 | Outpatient (CLI) | payer MEDICARE, SELFPAY ==
--- NOTE | 2021-08-05 09:15 | DI.RAD_ITS ---
Exam(s) XR LUMBAR SPINE COMPLETE EXAM: XR LUMBAR SPINE COMPLETE CLINICAL HISTORY: back pain,M25.552. TECHNIQUE: 2D digital imaging was performed. COMPARISON: No exams were available for comparison FINDINGS: There is no evidence of fracture or listhesis. Multilevel chronic disc space narrowing noted and mul tilevel bilateral bridging osteophytes. Sacroiliac joints appear unremarkable. No prominent scolios is. No osseous lesions. IMPRESSION: Chronic multilevel degenerative disc disease. DATA REPOSITORY: RADIATION DOSE DELIVERED:
--- NOTE | 2021-08-05 14:10 | DI.RAD_ITS ---
Exam(s) XR HIP RT COMPLETE AP PELVIS EXAM: XR HIP RT COMPLETE AP PELVIS CLINICAL HISTORY: right hip pain,ARTHRALGIA,M25.559. TECHNIQUE: 2D digital imaging was performed. COMPARISON: No exams were available for comparison FINDINGS: No evidence of pelvic nor hip fracture. Moderate degenerative changes noted in the right hip includi ng mild joint space narrowing and marginal osteophytes. Incidentally noted is degenerative disc dise ase at L4-5 level with disc space narrowing on the right side of this disc space. IMPRESSION: DATA REPOSITORY: RADIATION DOSE DELIVERED:
== END 2021-08-05 02:39 ==
PROVIDERS: PCP Emergency Medicine; Visit Provider Emergency Medicine
DX: M25.551 Pain in right hip (principal); M25.552 Pain in left hip; M54.9 Dorsalgia, unspecified; M16.11 Unilateral primary osteoarthritis, right hip; M51.36 Other intervertebral disc degeneration, lumbar region
CPT/HCPCS: 72110; 73502

== ENCOUNTER 2021-09-24 10:34 | Outpatient (CLI) | payer MEDICARE, SELFPAY ==
--- NOTE | 2021-09-24 10:00 | DI.RAD_ITS ---
Exam(s) XR KNEE RT 3V AP,LAT,JAYDA EXAM: XR KNEE RT 3V AP,LAT,JAYDA CLINICAL HISTORY: right knee pain. TECHNIQUE: 2D digital imaging was performed. COMPARISON: No exams were available for comparison FINDINGS: No evidence fracture although there is a joint effusion in the suprapatellar bursa, similar in size t o the opposite knee. In this knee there is also [id number] apposition in the medial compartment and moderate-advanced de generative changes in the patellofemoral compartment with normal height of the lateral compartment, a lso similar the opposite side. Mild Verus deformity. 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 This measures approximately 2.2 cm length. There are no lytic osseous lesions. IMPRESSION: DATA REPOSITORY: RADIATION DOSE DELIVERED:
--- NOTE | 2021-09-24 10:00 | DI.RAD_ITS ---
Exam(s) XR KNEE LT 3V AP,LAT,JAYDA EXAM: XR KNEE LT 3V AP,LAT,JAYDA CLINICAL HISTORY: Left knee pain. TECHNIQUE: 2D digital imaging was performed. COMPARISON: CR XR KNEE RT 3V AP,LAT,JAYDA from 09/24/2021 FINDINGS: No evidence of fracture although there is a left knee joint effusion seen in the suprapatellar bursa on the lateral view. There is [id number] narrowing of the medial compartment as well as small marginal osteophytes. Lat eral compartment exhibits normal height although there is some spurring within the intercondylar theodore a and at the tip of the medial tibial spine. Moderate degenerative changes noted in the patellofemor al compartment. In addition, there are calcifications noted laterally which are not the fabella, located lateral to t he lateral femoral condyle, this measuring approximately 11 x 8 millimeters. Appears to be in the pr oximity of the fibular collateral ligament. IMPRESSION: Degenerative changes as described above. Joint effusion. DATA REPOSITORY: RADIATION DOSE DELIVERED:
== END 2021-09-24 10:35 | disposition home or self-care (01) ==
LOC: DIORS 10:34
PROVIDERS: PCP Emergency Medicine; Referring Provider Emergency Medicine; Visit Provider Student in an Organized Health Care Education/Training Program
DX: M25.562 Pain in left knee (principal); M25.561 Pain in right knee; M25.551 Pain in right hip; M17.11 Unilateral primary osteoarthritis, right knee; M17.12 Unilateral primary osteoarthritis, left knee; M16.11 Unilateral primary osteoarthritis, right hip; M48.062 Spinal stenosis, lumbar region with neurogenic claudication
CPT/HCPCS: 20610; 73562; 99214; J1040

== ENCOUNTER 2021-10-01 02:07 | Outpatient (CLI) | payer MEDICARE, SELFPAY ==
--- NOTE | 2021-10-01 09:00 | DI.US_ITS ---
APPROVED REPORT EXAM: Comprehensive 2D, Doppler, and color-flow Echocardiogram Patient Location: Out-Patient Production Material Coordinator: Kari Springer RDCS (AE) Indications: Aortic Insufficiency Other Information Study Quality: Adequate Conclusion Normal left ventricular wall thickness and chamber size. Estimated ejection fraction is normal at 55 to 60%. There are no segmental wall motion abnormalities Normal right ventricular size and systolic function The left atrium is moderately to severely dilated. The right atrium is mildly dilated Aortic valve is sclerotic and trileaflet. There is no aortic stenosis. There is mild aortic regurgita tion Thickened mitral leaflets. Calcified mitral annulus. Mild to moderate mitral regurgitation Normal tricuspid valve with mild regurgitation. Estimated right ventricular systolic pressure is 28 m mHg Dilated ascending aorta measuring 4.58 cm Wall motion Left Ventricle The left ventricle is normal size. The left ventricular systolic function is normal. The left ventric ular ejection fraction is within the normal range. There is normal left ventricular wall thickness. T here is normal LV segmental wall motion. There is no ventricular septal defect visualized. LVEF is 55 -60%. Right Ventricle The right ventricle is normal size. The right ventricular systolic function is normal. The RVSP is 28 .9 mmHg. Atria Left atrium is moderately to severely dilated. Right atrium is mildly dilated. The interatrial septum is intact with no evidence for an atrial septal defect. Aortic Valve The Aortic valve is sclerotic. Aortic valve is trileaflet. There is no aortic valvular stenosis. Mild aortic regurgitation. Mitral Valve Mild mitral annular calcification. Thickened mitral leaflets No evidence of mitral valve stenosis. Mi ld to moderate mitral regurgitation. Tricuspid Valve The tricuspid valve is normal in structure. There is no tricuspid valve stenosis. Mild tricuspid regu rgitation. Pulmonic Valve The pulmonary valve is normal in structure. There is no pulmonic valvular stenosis. Trace pulmonic re gurgitation. Great Vessels Aortic root is mildly dilated. The ascending aorta is severely dilated. 4.58 cm Aortic arch is not we ll visualized. IVC is normal in size and collapses >50% with inspiration. Pericardium There is no pericardial effusion. 2D Dimensions IVSD d PLAX 1.12 cm M: 0.6-1.2 LV Vol A2C d MOD 115.3 mL LVPW d PLAX 1.14 cm M: 0.6 - 1.2 LV Vol A4C d MOD 101.0 mL LVID d PLAX 4.89 cm M: 4.2 - 5.8 LA vol/ BSA A2C s A-L 65.9 mL/m2 LVDs 3.60 cm M: 2.5 - 4.0 LA vol/ BSA A4C s A-L 60.0 mL/m2 Ao Root d 4.00 cm M: 3.1 - 3.7 LA Vol/ BSA Biplane s A-L 63.6 mL/m2 RA Area A4C 30.59 cm2 LA Area A4C s MOD 33.97 cm2 RA Vol/ BSA A4C s A-L 41.9 mL/m2 LA Area A2C s MOD 36.00 cm2 Ao Asc Diam d 4.58 cm M: 2.6 - 3.4 LV EF A4C MOD 55.8 % LV EF Teichholz 51.2 % LV EF A2C MOD 55.6 % LVEF (Dyer's) 56.07 % M: 52 - 72 LV EF Biplane MOD 56.1 % LV Volume 80.52 mL M: 62 - 150 SV 61.66 mL LV Volume Index 37.45 mL/m2 M: 34 - 74 SV Index 28.64 mL/m2 LV Vol Biplane MOD 110.0 mL FS 26.15 % M-Mode TAPSE 1.51 cm (M/F) >1.7 LV Diastology MV E' medial 0.097 (>0.07 m/s) MV E Vmax 1.08 (0.4-1.3 m/s) LV E/e MED 11.10 (<14) MV E' lateral 0.116 (>0.1 m/s) LV E/e LAT 9.25 (<14) MV E/E' medial 11.14 MV E/E' lateral 9.26 Aortic Valve LVOT Area 5.20 cm2 AoV Area Vmax 2.76 cm2 LVOT Vmax 0.94 m/s AoV Area/ BSA (Vmax) 1.28 cm2/m2 LVOT Mean Michi. 0.70 m/s TILA Mean Michi. 3.07 cm2 LVOT Peak Grad 3.5 mmHg TILA Mean Michi. Index 1.43 cm2/m2 LVOT Mean Grad 2.1 mmHg AR DT 2108 msec LVOT VTI 0.200 m AR PHT 611 msec LVOT Diam s 2.55 cm AoV Vmax 1.77 m/s Velocity Ratio 0.53 AoV Mean Michi. 1.19 m/s AoV Peak Grad 12.5 mmHg LVOT SV 104.16 mL AoV Mean Grad 6.4 mmHg AoV VTI 0.321 m AoV Area VTI 3.24 cm2 AoV Area/ BSA (VTI) 1.51 cm/m2 Mitral Valve MV DT 239 (160-240 msec) MR Vmax 5.18 m/s MV PHT 69 msec MR VTI 1.638 m MV Area PHT 3.17 cm2 MR Peak Grad 107.4 mmHg MV VTI 0.342 m MR Mean Grad 80.3 mmHg MV VTI Annulus 0.336 m MV Area VTI 2.98 (4.0-6.0 cm2) Pulmonary Valve PV Vmax 0.95 (0.5-1.5 m/s) RVOT Peak Gr. 2.15 mmHg PV Peak Grad 3.6 mmHg RVOT Mean Gr. 1.05 mmHg PV Mean Grad 1.9 mmHg RVOT VTI 0.133 m PV VTI 0.170 m RVOT Vmax 0.73 m/s Tricuspid Valve TR Peak Grad 25.8 mmHg TR Vmax 2.54 m/s RA Pressure 3.00 mmHg RVSP (TR) 28.9 mmHg
== END 2021-10-01 02:27 ==
PROVIDERS: PCP Emergency Medicine; Visit Provider Internal Medicine Cardiovascular Disease
DX: I08.3 Combined rheumatic disorders of mitral, aortic and tricuspid valves (principal); I77.810 Thoracic aortic ectasia; I35.1 Nonrheumatic aortic (valve) insufficiency
CPT/HCPCS: 93306

== ENCOUNTER 2021-10-08 00:59 | Outpatient (CLI) | payer MEDICARE, SELFPAY ==
--- NOTE | 2021-10-08 08:30 | DI.RAD_ITS ---
Exam(s) RF JOINT INJECTION FLUORO GUID EXAM: RF JOINT INJECTION FLUORO GUID CLINICAL HISTORY: R HIP INJ UNDER FLUORO,rt hip pain, m25.551,fluoro assisted injection TECHNIQUE: Fluoroscopy provided. Radiologist not present. CONTRAST MATERIAL: None COMPARISON: No exams were available for comparison FINDINGS: Fluoroscopy was provided for Dr. Jaime during right hip joint injection. Submitted image(s) reveal lateral approach needle distal tip at junction of the lateral femoral head and neck. Intra-articular contrast was injected. Please refer to the procedure report for complete details. Cumulative Dose: shankar العلي=0.771 mGy IMPRESSION: RADIATION DOSE DELIVERED:
--- NOTE | 2021-10-08 14:40 | W.PROCNOTE ---
Date of service: 10/08/21 Time of Service: 14:40 Procedure Note Date of procedure: 10/08/21 Procedure: Right Hip Injection with Fluoroscopic Guidance Surgeon/Proceduralist/Physician: Swapnil Jaime Procedure Diagnosis: Right Hip Osteoarthritis Procedure Indications: Adilia has had persistent pain of the RIGHT hip and groin. Noninvasive measures have been tried. To serve as both diagnostic and therapeutic, an injection under fluoroscopy was recommended. I had discussed the risks of the procedure and the patient elected to proceed. Procedure Description: Adilia was greeted in the flouroscopy room. The correct side was identified and the consent was reviewed with the patient and signed. The patient was then placed in the supine position on the fluoroscopy table. The RIGHT hip was then prepped with Chloraprep. The anterolateral injection starting point was identiifed by bony landmarks and fluoroscopy. The skin and soft tissue in the tract of the injection was anesthetized with 1% Lidocaine. A spinal needle was then inserted deep into the hip joint at the level of the lateral femoral neck under fluoroscopic guidance. A small amount of Omnipaque solution was injected to confirm intraarticular placement. Once confirmed, the hip was injected with 5cc of 0.5% Bupivicaine and 80mg of Depo-Medrol. A bandaid was placed on the injection site. The patient tolerated the procedure well and noted improvement in pre-injection pain.
[2021-10-08] MEDS: methylPREDNISolone ACETATE 80 MG/ML VIAL IM (14:54)
[2021-10-08] MEDS: Omnipaque 300 MG/ML 10 ML BTL IJ (14:56)
[2021-10-08] MEDS: Bupivacaine 0.5% Pres-Free 10 ML VIAL 5 ML IJ (14:57)
== END 2021-10-08 01:19 ==
PROVIDERS: PCP Emergency Medicine; Visit Provider Student in an Organized Health Care Education/Training Program
DX: M25.551 Pain in right hip (principal); M16.11 Unilateral primary osteoarthritis, right hip; R10.31 Right lower quadrant pain; I48.0 Paroxysmal atrial fibrillation; I10 Essential (primary) hypertension; I35.1 Nonrheumatic aortic (valve) insufficiency; I77.810 Thoracic aortic ectasia; Z79.01 Long term (current) use of anticoagulants
CPT/HCPCS: 20610; 77002; 99214; 99213; J1040

== ENCOUNTER 2021-11-05 02:04 | Outpatient (CLI) | payer MEDICARE, SELFPAY ==
--- NOTE | 2021-11-05 08:30 | DI.US_ITS ---
Exam(s) US RENAL EXAM: US RENAL CLINICAL HISTORY: monitoring renal cysts/left renal mass,n28.89. TECHNIQUE: Matamoros scale, color and spectral Doppler were used. COMPARISON: US ABDOMEN ULTRASOUND (P) from 01/08/[address] ABDOMEN PELVIS W from 01/02/2019 MR MR ABDOMEN WO/W from 01/30/2019 US US RENAL from 09/25/2019 US US RENAL from 10/30/2020 US US RENAL from 05/07/2021 FINDINGS: Renal size in cm: Right: 12.7 left: 13.4 Echogenicity: Normal Hydronephrosis: No Cyst or mass: Right kidney: 5 centimeter maximal dimension simple cyst lower pole. Left kidney: Multiple cysts, largest 5 cm in maximal dimension. Stable appearance of solid-appearing circumscribed mass at the lower pole of the left kidney which is measured on today's exam the jose l dimension of 3.5 cm, unchanged given measurement variability. Nephrolithiasis: No Bladder:Normal Prevoid vol: 188 cc Postvoid vol:73 cc Prostate volume 31 cc IMPRESSION: Stable size of mass at the lower pole of the left kidney. Stable size of bilateral renal cysts. Ana vated postvoid residual of 73 cc. DATA REPOSITORY:
== END 2021-11-05 02:24 ==
PROVIDERS: PCP Emergency Medicine; Visit Provider Nurse Practitioner Gerontology
DX: N28.89 Other specified disorders of kidney and ureter (principal); N28.1 Cyst of kidney, acquired
CPT/HCPCS: 76770

== ENCOUNTER → 2021-11-11 15:20 | Outpatient (BNVA) | payer MEDICARE, SELFPAY | PROVIDERS: PCP Emergency Medicine; Visit Provider Nurse Practitioner Gerontology | DX: N28.89 Other specified disorders of kidney and ureter (principal) | CPT/HCPCS: 99214 ==

== ENCOUNTER 2022-02-02 12:12 | Outpatient (CLI) | payer MEDICARE, SELFPAY ==
--- NOTE | 2022-02-02 06:00 | DI.RAD_ITS ---
Exam(s) XR PAIN CLINIC LUMBAR SP 2V EXAM: XR PAIN CLINIC LUMBAR SP 2V CLINICAL HISTORY: Dx: Lumbar Radiculopathy TECHNIQUE: 2D and realtime digital imaging was performed. CONTRAST MATERIAL: Refer to procedure report. COMPARISON: No exams were available for comparison FINDINGS: Fluoroscopy was provided for Dr. Quiles during the performance of a lumbar epidural steroid injection. Please refer to the procedure report for complete details. Ka,r=35.62 mGy IMPRESSION:
[2022-02-02 12:24] VITALS: BP 139/77; PULSE 56; RESP 20; TEMP 36.6; O2SAT 96
[2022-02-02] MEDS: Dexamethasone Sod. Phos./Pres-Free 10 MG/ML VIAL IJ (13:00)
--- NOTE | 2022-02-02 13:02 | PDOC.PAIN ---
Pain Clinic Procedure Note Procedure Note Procedure Note: LUMBAR / SACRAL TRANSFORAMINAL INJECTION AT THE RIGHT L3-L4 Adilia Galdamez has been referred to the [facility] for a transforaminal nerve root block and steroid injection. COMMENTS: He was evaluated by Dr. Pike, Spine Surgeon at [facility], who recommended this procedure. His pre-procedure pain VAS was 5/10. Dx: Lumbar radiculopathy Patient was interviewed and the medical record reviewed. There were no medical, pharmacologic, radiographic or other structural contraindications to attempting fluoroscopically guided transforaminal nerve root block and epidural steroid injection. Risks and expected side effects as well as potential benefit of the procedure were reviewed and voiced concerns addressed. The printed consent form was signed and witnessed. Standard time-out procedure was performed. Patient was placed in the prone position on the fluoroscopy table and automated blood pressure cuff and pulse oximeter applied. Fluoroscopy was utilized to identify the right L3-L4 neural foramen between Left L3 and left L4. A skin barbara was made for the needle insertion site. A Chlorhexadine prep was carried out, and sterile drapes were applied. Local anesthesia was achieved in the skin and subcutaneous tissues. A 22 gauge 5 spinal needle was then inserted, advanced with fluoroscopic guidance into the neural foramen, confirmed on the lateral view. After negative aspiration, 2 ml of Omnipaque 240 was injected confirming position in A/P and lateral views. This showed a good spread of dye transforaminally into the epidural space. There was no vascular update with contrast injection under continuous fluoroscopy and digital substraction. 15 mg of Dexamethasone was injected, followed by 1 ml of 1% Xylocaine flush for the nerve root block, as well. There was no unusual discomfort expressed.The needle was withdrawn. The patient tolerated the procedure well. A Band-Aid was applied. Vital signs were stable throughout the procedure and were as recorded in nursing records. If given, dosages of intravenous drugs for anxiolysis and analgesia were documented in nursing records. Follow up plans and appointments were discussed. Post procedure instruction was given as documented in nursing records and patient was discharged in the care of an identified trolley coach driver. COMMENTS: Post-procedure pain VAS = 0/10. Josh Quiles DO, MPH [facility] CC: Ho Morrissey MD
[2022-02-02] MEDS: Omnipaque 240 MG/ML 50 ML BTL IJ (13:06)
[2022-02-02 13:10] VITALS: BP 148/93; PULSE 72; RESP 20; O2SAT 99
== END 2022-02-02 12:13 | disposition home or self-care (01) ==
LOC: PC 12:13
PROVIDERS: PCP Family Medicine; Visit Provider Preventive Medicine Occupational Medicine
DX: M54.16 Radiculopathy, lumbar region (principal)
CPT/HCPCS: 64483; 72100; Q9967

== ENCOUNTER → 2022-04-08 13:18 | Outpatient (BNVA) | payer MEDICARE, SELFPAY | PROVIDERS: PCP Family Medicine; Visit Provider Internal Medicine Cardiovascular Disease | DX: I48.0 Paroxysmal atrial fibrillation (principal); I10 Essential (primary) hypertension; I35.1 Nonrheumatic aortic (valve) insufficiency; I77.810 Thoracic aortic ectasia | CPT/HCPCS: 99214; 99213 ==

== ENCOUNTER → 2022-05-06 01:29 | Outpatient (CLI) | payer MEDICARE, SELFPAY ==
--- NOTE | 2022-05-06 07:45 | DI.US_ITS ---
Exam(s) US RENAL EXAM: US RENAL CLINICAL HISTORY: monitoring renal mass/cysts,N28.89. TECHNIQUE: Matamoros scale, color and spectral Doppler were used. COMPARISON: CT CT ABDOMEN PELVIS W from 01/02/2019 MR MR ABDOMEN WO/W from 01/30/2019 US US RENAL from 11/05/2021 FINDINGS: Renal size in cm: Right: 13.5. Left: 11.5. Echogenicity: Normal. Hydronephrosis: No. Cyst or mass: There are multiple bilateral renal cysts present. There are 2 cysts seen on the right kidney. The midpole 2.2 x 2 x 2.7 cm lesion corresponds to a simple cysts seen on prior MRI and CT s cans. There is no solid right renal mass present. There is again seen a solid hypoechoic mass in th e inferior pole of the left kidney measuring 4.2 x 2.7 x 3.2 cm. Previously, it measured 3.5 x 2.6 x 2.6 cm. Nephrolithiasis: No. Other findings: None. Bladder:Normal. Ureteral jets: Right: Visualized and unremarkable. Left: Visualized and unremarkable. Prevoid vol:223 cc Postvoid vol:14 cc Prostate: 33 cc Renal color flow: Symmetric and within normal limits. IMPRESSION: 1. Solid left renal mass in the inferior pole. It measures 4.2 x 2.7 x 3.2 cm currently. Previously , it measured 3.5 x 2.6 x 2.6 cm. 2. Multiple bilateral renal cysts. 3. Enlarged prostate gland. DATA REPOSITORY:
== END ==
PROVIDERS: PCP Family Medicine; Visit Provider Nurse Practitioner Gerontology
DX: N28.89 Other specified disorders of kidney and ureter (principal); N40.0 Benign prostatic hyperplasia without lower urinary tract symptoms; N28.1 Cyst of kidney, acquired
CPT/HCPCS: 76770

== ENCOUNTER → 2022-05-18 14:17 | Outpatient (BNVA) | payer MEDICARE, SELFPAY | PROVIDERS: PCP Family Medicine; Visit Provider Nurse Practitioner Gerontology | DX: R39.15 Urgency of urination (principal); N28.89 Other specified disorders of kidney and ureter | CPT/HCPCS: 99214 ==

== ENCOUNTER 2022-07-14 11:11 | Outpatient (CLI) | payer MEDICARE, SELFPAY ==
--- NOTE | 2022-07-14 06:00 | DI.RAD_ITS ---
Exam(s) XR PAIN CLINIC LUMBAR SP 2V EXAM: XR PAIN CLINIC LUMBAR SP 2V CLINICAL HISTORY: Dx: Lumbar Radiculopathy TECHNIQUE: 2D and realtime digital imaging was performed. Radiologist not present. CONTRAST MATERIAL: None. COMPARISON: No exams were available for comparison FINDINGS: Fluoroscopy was provided for pain management therapy. Please refer to procedure report or details. Cumulative dose: Ka,r=10.67 mGy IMPRESSION: RADIATION DOSE DELIVERED:
[2022-07-14 11:20] VITALS: BP 162/72; PULSE 66; RESP 22; TEMP 36.6; O2SAT 95
[2022-07-14 11:47] VITALS: PULSE 77; RESP 23; O2SAT 97
[2022-07-14] MEDS: Omnipaque 240 MG/ML 50 ML BTL IJ (11:47)
[2022-07-14] MEDS: Dexamethasone Sod. Phos./Pres-Free 10 MG/ML VIAL IJ (11:47)
--- NOTE | 2022-07-14 11:57 | PDOC.PAIN_ITS ---
Pain Clinic Procedure Note Procedure Note Procedure Note: LUMBAR / SACRAL TRANSFORAMINAL INJECTION #2 Adilia Galdamez has been referred to the [facility] for a transforaminal nerve root block and steroid injection. COMMENTS: He did well with his first TFESI at the right L3-L4. Today's pain VAS was 6/10. Dx: Lumbar radiculopathy Patient was interviewed and the medical record reviewed. There were no medical, pharmacologic, radiographic or other structural contraindications to attempting fluoroscopically guided transforaminal nerve root block and epidural steroid injection. Risks and expected side effects as well as potential benefit of the procedure were reviewed and voiced concerns addressed. The printed consent form was signed and witnessed. Standard time-out procedure was performed. Patient was placed in the prone position on the fluoroscopy table and automated blood pressure cuff and pulse oximeter applied. Fluoroscopy was utilized to identify the right L3 neural foramen between L3 and L4 . A skin barbara was made for the needle insertion site. A Chlorhexadine prep was carried out, and sterile drapes were applied. Local anesthesia was achieved in the skin and subcutaneous tissues. A 22 gauge 5 spinal needle was then inserted, advanced with fluoroscopic guidance into the neural foramen, confirmed on the lateral view. After negative aspiration, 2 ml of Omnipaque 240 was injected confirming position in A/P and lateral views. This showed a good spread of dye transforaminally into the epidural space. There was no vascular update with contrast injection under continuous fluoroscopy and digital substraction. 15 mg of Dexamethasone was injected, followed by 0.5 ml of 1% Xylocaine flush for the nerve root block, as well. There was no unusual discomfort expressed.The needle was withdrawn. The patient tolerated the procedure well. A Band-Aid was applied. Vital signs were stable throughout the procedure and were as recorded in nursing records. If given, dosages of intravenous drugs for anxiolysis and analgesia were documented in nursing records. Follow up plans and appointments were discussed. Post procedure instruction was given as documented in nursing records and patient was discharged in the care of an identified hazardous materials tanker driver. COMMENTS: Post-procedure pain VAS was 0/10 to the right leg. Josh Quiles DO, MPH [facility]-Pain Management [facility] CC: Ho Morrissey MD
== END 2022-07-14 11:12 | disposition home or self-care (01) ==
LOC: PC 11:11
PROVIDERS: PCP Family Medicine; Visit Provider Preventive Medicine Occupational Medicine
DX: M54.16 Radiculopathy, lumbar region (principal)
CPT/HCPCS: 64483; 72100; Q9967

== ENCOUNTER 2022-08-10 08:45 | Outpatient (CLI) | payer MEDICARE, SELFPAY ==
[2022-08-10 12:13] LABS: HCT 42.6 % (40.0-50.0); HGB 14.3 g/dL (13.5-17.5); MCH 30.9 pg (27.0-33.0); MCHC 33.6 % (32.0-36.0); MCV 92 fL (80-95); MPV 10.3 fL (8.0-11.0); Platelet Count 154 10^3/uL (130-400); RBC 4.63 10^6/uL (4.36-5.78); RDW 13.5 % (11.8-14.1); RDW-SD 45.9 fL; WBC 4.47 10^3/uL (4.4-10.8)
[2022-08-10 12:35] LABS: Anion Gap 10.1 mmol/L (3-11); BUN 19 mg/dL (7-18); CO2 26.9 mmol/L (21.0-32.0); Calcium 9.2 mg/dL (8.5-10.1); Chloride 105 mmol/L (98-107); Estimated GFR 75.14 (mL/min/1.73m2); Glucose 121 mg/dL (74-106); Potassium 3.7 mmol/L (3.5-5.1); Sodium 142 mmol/L (136-145)
[2022-08-10 14:00] LABS: Lab Add On Test DONE
[2022-08-10 14:20] LABS: Hemoglobin A1C 5.9 % (<5.7)
== END 2022-08-10 08:46 | disposition home or self-care (01) ==
PROVIDERS: PCP Family Medicine; Referring Provider Family Medicine; Visit Provider Family Medicine
DX: I10 Essential (primary) hypertension (principal); E78.5 Hyperlipidemia, unspecified; E03.9 Hypothyroidism, unspecified; E87.1 Hypo-osmolality and hyponatremia; R73.09 Other abnormal glucose; R53.83 Other fatigue
CPT/HCPCS: 36415; 80048; 85027; 83036; 84443

== ENCOUNTER → 2022-10-04 02:16 | Outpatient (CLI) | payer MEDICARE, SELFPAY ==
--- NOTE | 2022-10-04 13:51 | DI.US_ITS ---
APPROVED REPORT EXAM: Comprehensive 2D, Doppler, and color-flow Echocardiogram Patient Location: [facility] Tutor: Kari Springer RDCS (AE) Indications: Dilated ascending aorta, HTN, Atrial Fibrillation Other Information Study Quality: Adequate Conclusion Normal left ventricular wall thickness and chamber size. Estimated ejection fraction is 55%. There is an anteroapical wall motion abnormality Normal right ventricular size and systolic function Left atrium is moderately to severely dilated. The right atrium is moderately dilated Aortic valve is sclerotic and trileaflet with mild to moderate regurgitation. There is no aortic erika nosis Mitral annular calcification. Moderate mitral regurgitation Normal tricuspid valve with mild regurgitation. Estimated right ventricular systolic pressure is 40 mmHg Dilated ascending aorta measuring 4.6 cm Wall motion Left Ventricle The left ventricle is normal size. Left ventricular systolic function is borderline normal. There is normal left ventricular wall thickness. Anteroapical hypokinesis There is no ventricular septal defec t visualized. LVEF is 55%. Right Ventricle The right ventricle is normal size. The right ventricular systolic function is normal. The RVSP is 39 .8mmHg. Atria Left atrium is moderate to severely dilated. Right atrium is moderately dilated. The interatrial sept um is intact with no evidence for an atrial septal defect. Aortic Valve The Aortic valve is sclerotic. Aortic valve is trileaflet. There is no aortic valvular stenosis. Mild to moderate aortic regurgitation. Mitral Valve Moderate mitral annular calcification. No evidence of mitral valve stenosis. Moderate mitral regurgi tation. Tricuspid Valve The tricuspid valve is normal in structure. There is no tricuspid valve stenosis. Mild tricuspid regu rgitation. Pulmonic Valve The pulmonary valve is normal in structure. There is no pulmonic valvular stenosis. Mild pulmonic reg urgitation. Great Vessels Aortic root is mildly dilated. The ascending aorta is severely dilated.4.6 cm Aortic arch is normal in caliber. IVC is normal in size and collapses >50% with inspiration. Pericardium There is no pericardial effusion. 2D Dimensions IVSD d PLAX 1.23 cm M: 0.6-1.2 LV Vol A2C d MOD 173.6 mL LVPW d PLAX 1.23 cm M: 0.6 - 1.2 LV Vol A4C d MOD 203.9 mL LVID d PLAX 5.71 cm M: 4.2 - 5.8 LA vol/ BSA A2C s A-L 84.2 mL/m2 LVDs 4.00 cm M: 2.5 - 4.0 LA vol/ BSA A4C s A-L 74.5 mL/m2 Ao Root d 4.01 cm M: 3.1 - 3.7 LA Vol/ BSA Biplane s A-L 79.9 mL/m2 RA Area A4C 28.71 cm2 LA Area A4C s MOD 37.99 cm2 RA Vol/ BSA A4C s A-L 36.1 mL/m2 LA Area A2C s MOD 40.74 cm2 Ao Asc Diam d 4.60 cm M: 2.6 - 3.4 LV EF A4C MOD 50.9 % LV EF Teichholz 55.5 % LV EF A2C MOD 55.3 % LVEF (Dyer's) 52.58 % M: 52 - 72 LV EF Biplane MOD 52.6 % LV Volume 137.77 mL M: 62 - 150 SV 98.93 mL LV Volume Index 64.07 mL/m2 M: 34 - 74 SV Index 45.95 mL/m2 LV Vol Biplane MOD 188.1 mL FS 29.30 % M-Mode TAPSE 1.80 cm (M/F) >1.7 LV Diastology MV E' medial 0.100 (>0.07 m/s) MV E Vmax 1.19 (0.4-1.3 m/s) LV E/e MED 11.95 (<14) MV E' lateral 0.122 (>0.1 m/s) LV E/e LAT 9.75 (<14) MV E/E' medial 11.96 MV E/E' lateral 9.76 Aortic Valve LVOT Area 3.66 cm2 AoV Area Vmax 2.82 cm2 LVOT Vmax 1.22 m/s AoV Area/ BSA (Vmax) 1.31 cm2/m2 LVOT Mean Michi. 0.88 m/s TILA Mean Michi. 2.87 cm2 LVOT Peak Grad 5.9 mmHg TILA Mean Michi. Index 1.33 cm2/m2 LVOT Mean Grad 3.4 mmHg AR DT 1897 msec LVOT VTI 0.262 m AR PHT 550 msec LVOT Diam s 2.15 cm AoV Vmax 1.58 m/s Velocity Ratio 0.77 AoV Mean Michi. 1.12 m/s AoV Peak Grad 10.0 mmHg LVOT SV 95.95 mL AoV Mean Grad 5.6 mmHg AoV VTI 0.310 m AoV Area VTI 3.10 cm2 AoV Area/ BSA (VTI) 1.44 cm/m2 Mitral Valve MV DT 134 (160-240 msec) MR Vmax 5.93 m/s MV PHT 39 msec MR VTI 1.913 m MV Area PHT 5.67 cm2 MR Peak Grad 140.7 mmHg MV VTI 0.312 m MR Mean Grad 90.6 mmHg MV VTI Annulus 0.265 m MR PISA Radius 0.60 cm MV Area VTI 2.68 (4.0-6.0 cm2) MR EROA 0.13 cm2 MR Aliasing Velocity 0.35 m/s MR PISA 2.24 cm2 Pulmonary Valve PV Vmax 0.95 (0.5-1.5 m/s) RVOT Peak Gr. 1.25 mmHg PV Peak Grad 3.6 mmHg RVOT Mean Gr. 0.65 mmHg PV Mean Grad 2.1 mmHg RVOT VTI 0.122 m PV VTI 0.193 m RVOT Vmax 0.56 m/s Tricuspid Valve TR Peak Grad 36.7 mmHg TR Vmax 3.03 m/s RA Pressure 3.00 mmHg RVSP (TR) 39.8 mmHg
== END ==
PROVIDERS: PCP Family Medicine; Visit Provider Internal Medicine Cardiovascular Disease
DX: I10 Essential (primary) hypertension (principal); I48.0 Paroxysmal atrial fibrillation; I77.810 Thoracic aortic ectasia
CPT/HCPCS: 93306

== ENCOUNTER → 2022-10-14 10:52 | Outpatient (BNVA) | payer MEDICARE, SELFPAY | PROVIDERS: PCP Family Medicine; Visit Provider Internal Medicine Cardiovascular Disease | DX: I77.810 Thoracic aortic ectasia (principal); I35.1 Nonrheumatic aortic (valve) insufficiency; I48.0 Paroxysmal atrial fibrillation; I10 Essential (primary) hypertension; Z79.01 Long term (current) use of anticoagulants | CPT/HCPCS: 99214 ==

== ENCOUNTER 2022-11-18 01:06 | Outpatient (CLI) | payer MEDICARE, SELFPAY ==
--- NOTE | 2022-11-18 07:30 | DI.US_ITS ---
Exam(s) US RENAL EXAM: US RENAL CLINICAL HISTORY: monitoring left renal mass,n28.89. TECHNIQUE: Matamoros scale, color and spectral Doppler were used. COMPARISON: US US RENAL from 05/06/2022 FINDINGS: Renal size in cm: Right: 12.9. Left: 13.1. Echogenicity: Normal. Hydronephrosis: No. Cyst or mass: There are bilateral simple renal cysts. The largest on the right measures 4.8 x 3.9 x 5.2 cm. The largest on the left measures 4.6 x 4.3 x 4.5 cm. The solid left renal mass is difficult to visualized on the current examination due to overlying bowel. Measurements obtained are 2.4 x 2. 8 [address] scan of the kidneys with contrast might provide better detail of the left renal mass. Nephrolithiasis: No. Other findings: None. Bladder:Normal. Ureteral jets: Right: Visualized and unremarkable. Left: Visualized and unremarkable. Prevoid vol:198 cc Postvoid vol:51 cc Prostate: 27 cc Renal color flow: Symmetric and within normal limits. IMPRESSION: 1. Left renal mass is difficult to visualize due to overlying bowel on this examination. Measurement s obtained on the current study are 2.4 x 2.8 x [address] scan of the kidneys with contrast may pro vide better detail of the left renal mass. 2. Bilateral renal cysts. 3. Small postvoid urinary bladder volume. DATA REPOSITORY:
== END 2022-11-18 01:26 ==
LOC: DI 01:07
PROVIDERS: PCP Family Medicine; Visit Provider Nurse Practitioner Gerontology
DX: N28.89 Other specified disorders of kidney and ureter (principal); N28.1 Cyst of kidney, acquired
CPT/HCPCS: 76770

== ENCOUNTER → 2022-11-22 13:10 | Outpatient (BNVA) | payer MEDICARE, SELFPAY | PROVIDERS: PCP Family Medicine; Referring Provider Family Medicine; Visit Provider Nurse Practitioner Gerontology | DX: Z87.19 Personal history of other diseases of the digestive system (principal); N28.89 Other specified disorders of kidney and ureter | CPT/HCPCS: 51798; 99214 ==

== ENCOUNTER 2023-04-14 08:19 | Outpatient (CLI) | payer MEDICARE, SELFPAY ==
--- NOTE | 2023-04-14 08:15 | RT.EKG_ITS ---
APPROVED REPORT Exam: Resting ECG Reason for Exam: Paroxysmal afib Patient Location: O HR:71 bpm ECG Measurements Heart Rate 71 AXIS TX [id number] P [id number] QRSd 120 QRS -49 QT 434 T 57 QTc 472 Conclusion Atrial fibrillation...V-rate 58- 68, irreg A-activity Ventricular premature complex...V complex w/ short R-R interval Left anterior fascicular block...axis(240,-40), init forces inf Probable left ventricular hypertrophy...(RaVL+SV3)xQRSd >280
== END 2023-04-14 08:20 | disposition home or self-care (01) ==
LOC: DI.CARD 08:20
PROVIDERS: PCP Family Medicine; Visit Provider Internal Medicine Cardiovascular Disease
DX: I48.0 Paroxysmal atrial fibrillation (principal)
CPT/HCPCS: 93010

== ENCOUNTER → 2023-04-14 12:36 | Outpatient (BNVA) | payer MEDICARE, SELFPAY | PROVIDERS: PCP Family Medicine; Visit Provider Internal Medicine Cardiovascular Disease | DX: I10 Essential (primary) hypertension (principal); I48.21 Permanent atrial fibrillation; Z79.01 Long term (current) use of anticoagulants; I35.1 Nonrheumatic aortic (valve) insufficiency | CPT/HCPCS: 93005; 99214 ==

== ENCOUNTER 2023-04-29 00:33 | Outpatient (CLI) | payer MEDICARE, SELFPAY ==
--- NOTE | 2023-04-29 08:00 | DI.US_ITS ---
Exam(s) US RENAL EXAM: US RENAL CLINICAL HISTORY: monitoring renal cysts/mass areas, RENAL MASS, N28.89. TECHNIQUE: Matamoros scale, color and spectral Doppler were used. COMPARISON: CT CT ABDOMEN PELVIS W from 01/02/2019 MR MR ABDOMEN WO/W from 01/30/2019 US US RENAL from 12/28/2019 US US RENAL from 11/05/2021 US US RENAL from 05/06/2022 US US RENAL from 11/18/2022 FINDINGS: Renal size in cm: Right: 10.4 left: 12.0 Echogenicity: Normal Hydronephrosis: No Cyst or mass: Right kidney 2.7 centimeters cyst mid right kidney. 4.5 centimeter cyst lower pole. Left kidney: 4 centimeters cyst upper pole. 4.1 centimeters cyst mid left kidney. 5 centimeter cyst lower pole. Previously noted solid mass in the inferomedial left kidney was again not able to be vi sualized. Nephrolithiasis: No Bladder:Mild wall thickening. No stone or focal mass. Prevoid vol:116 cc Postvoid vol:101 cc. Patient unable to void. Prostate volume 20 cc. IMPRESSION: Previously noted solid mass at the lower pole of the left kidney was unable to be visualized on the c urrent exam. Bilateral cysts present. No hydronephrosis. Mild bladder wall thickening. Enlarged prostate. DATA REPOSITORY:
== END 2023-04-29 00:53 ==
LOC: DI 00:34
PROVIDERS: PCP Family Medicine; Visit Provider Nurse Practitioner Gerontology
DX: N28.89 Other specified disorders of kidney and ureter (principal)
CPT/HCPCS: 76770

== ENCOUNTER 2023-05-06 00:27 | Outpatient (CLI) | payer MEDICARE, SELFPAY ==
--- NOTE | 2023-05-06 07:30 | DI.MRI_ITS ---
Exam(s) MR LUMBAR SPINE WO EXAM: MR LUMBAR SPINE WO CLINICAL HISTORY: Worsening radicular pain (to both calves now),s/p injury,m54.16. TECHNIQUE: Multiplanar multisequence MRI of the Lumbar spine was performed. COMPARISON: MR MR LUMBAR SPINE WO from 05/16/2020 FINDINGS: Conus medullaris is at normal level. There is no evidence of conus mass nor subjacent clumping of in trathecal nerve roots to suggest arachnoiditis. The distal thecal sac appears unremarkable. Bones:There are no fractures nor ominous osseous lesions in the lumbar vertebral bodies and visualize d sacrum. Benign intraosseous hemangioma in the posterior aspect of L1 vertebral body is again noted , unchanged. With respect to the individual levels... T11-T12: Broad annular bulging. Mild central spinal canal stenosis. No significant foraminal stenos is. Mild facet arthropathy. T12-L1: Mild annular bulging. No prominent disc herniation. No central canal stenosis. No foramina l stenosis. Mild facet arthropathy. L1-2: Mild uniform disc space narrowing. No disc herniation nor central canal stenosis. No signific ant foraminal stenosis. Mild degenerative changes in the facet joints. L2-3: Chronic disc space narrowing again noted. Posterior bony ridging. Mild retrolisthesis L 2 upo n L3 is unchanged. There is broad annular bulging again noted. Moderate-severe central spinal canal stenosis evident due to the annular bulging and retrolisthesis. No significant foraminal stenosis. Facet joint degenerative changes-moderate. Findings at this level are unchanged from previous. L3-4: Chronic advanced disc space narrowing again noted. Posterior annular bulging and osseous ridgi ng again noted.. Severe central spinal canal stenosis is again noted, unchanged. No prominent pierre inal stenosis. Moderate facet arthropathy. L4-5: This level exhibits advanced disc space narrowing on the right side, less so on the left side. There are Modic type 1 sub endplate marrow edema changes on the right side at this level noted. The re are prominent lateral right osteophytes noted. There is annular bulging. Moderate-severe central spinal canal stenosis is unchanged from previous. Facet arthropathy bilaterally noted, more so on t he right side. There is moderate right-sided foraminal stenosis and minimal left-sided foraminal erika nosis, unchanged. L5-S1: This level again exhibits preserved disc height related to partial fusion of the disc space. There is annular bulging without a dominant disc herniation. There is mild central canal stenosis. Appears unchanged from previous. Mild degenerative changes in the facet joints. There is no signifi cant foraminal stenosis at this level. Soft tissues: Renal cysts are again noted bilaterally. IMPRESSION: 1. 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 2. There is moderate-severe canal stenosis at L2-3 and severe central canal stenosis at L3-4 and L4-5 levels, all similar to the previous study. 3. There is multilevel facet arthropathy but there is only mild foraminal stenosis as described above . There are Modic type 1 sub endplate marrow edema changes on the right side of L4-5 level which was no t evident on the prior MRI scan of 3 years ago. DATA REPOSITORY:
== END 2023-05-06 00:47 ==
LOC: DI 00:27
PROVIDERS: PCP Family Medicine; Visit Provider Preventive Medicine Occupational Medicine
DX: M47.15 Other spondylosis with myelopathy, thoracolumbar region (principal); M54.16 Radiculopathy, lumbar region
CPT/HCPCS: 72148

== ENCOUNTER 2023-05-12 11:11 | Outpatient (CLI) | payer MEDICARE, SELFPAY ==
[2023-05-12 12:30] LABS: Estimated GFR 74.68 (mL/min/1.73m2); Potassium 4.5 mmol/L (3.5-5.1)
== END 2023-05-12 11:12 | disposition home or self-care (01) ==
LOC: LOS 11:11
PROVIDERS: PCP Family Medicine; Referring Provider Family Medicine; Visit Provider Family Medicine
DX: I10 Essential (primary) hypertension (principal)
CPT/HCPCS: 36415; 82565; 84132

== ENCOUNTER → 2023-05-16 14:35 | Outpatient (BNVA) | payer MEDICARE, SELFPAY | PROVIDERS: PCP Family Medicine; Visit Provider Nurse Practitioner Gerontology | DX: I10 Essential (primary) hypertension (principal); N28.89 Other specified disorders of kidney and ureter | CPT/HCPCS: 99213 ==

== ENCOUNTER 2023-07-06 10:25 | Outpatient (CLI) | payer MEDICARE, SELFPAY ==
--- NOTE | 2023-07-06 06:00 | DI.RAD_ITS ---
Exam(s) XR PAIN CLINIC LUMBAR SP 2V EXAM: XR PAIN CLINIC LUMBAR SP 2V CLINICAL HISTORY: Dx: Lumbar Radiculopathy TECHNIQUE: 2D and realtime digital imaging was performed. Radiologist not present. CONTRAST MATERIAL: None. COMPARISON: No exams were available for comparison FINDINGS: Fluoroscopy was provided for pain management therapy. Please refer to procedure report or details. Radiation Exposure Index: Ka,r=15 mGy IMPRESSION: As above. RADIATION DOSE DELIVERED:
[2023-07-06 10:44] VITALS: BP 135/85; PULSE 60; RESP 20; TEMP 36.6; O2SAT 97
--- NOTE | 2023-07-06 11:44 | PDOC.PAIN_ITS ---
Date of service: 07/06/23 Time of Service: 11:44 Pain Managment Procedure Note Procedure Note Procedure Note: PROCEDURE NOTE CAUDAL EPIDURAL STEROID INJECTION Date of Service: July 06, 2023 Patient:? Adilia Galdamez? Provider:? Josh Quiles DO, MPH Adilia Galdamez has been referred to the [facility] Center for caudal epidural steroid injection.? Pre-operative diagnosis: Lumbosacral Radiculopathy Post-operative diagnosis: Same Pre-Procedure Pain: VAS= 8/10. COMMENTS: I previously evaluated him in the office on 02/02/23. I did review his recent lumbar spine MRI from 05/06/23. His symptoms are the same from 02/02/23. Antolinwas interviewed and the medical record was reviewed.? There were no medical, pharmacologic, radiographic or other structural contraindications to at tempting fluoroscopically guided epidural steroid injection.? Risks and expected side effects as well as potential benefit of the procedure were reviewed with Antolin, and the patient's voiced concerns were addressed.? The printed consent form was signed.? Standard time-out procedure was performed. Antolin was placed in the prone position on the fluoroscopy table and automated blood pressure cuff and pulse oximeter applied.? The skin entry point for entering/approaching the epidural space by a caudal approach through the sacral hiatus ed identified with surgical skin marking.? Following thorough chlorhexidine preparation of the skin and draping and 1% lidocaine infiltration of the skin entry point and subcutaneous tissues, a 17 gauge Touhy needle was placed under fluoroscopic guidance? into the epidural space. Needle tip placement and depth were aided and confirmed by fluoroscopy in the lateral and AP position. There was no paresthesia or return of blood or CSF through the needle. 1 cc of Omnipaque 240 was injected with clear epidural spread confirmed with fluoroscopy. An Arrow 19G radio-opaque epidural catheter was advanced into the epidural space to the L5-S1 level and 2 cc of Omnipaque 240 was injected with clear epidural spread. 80 mg of Depo-Medrol was? injected. There was no unusual discomfort expressed by Adilia. The needle and catheter wer e then flushed with 1 cc of 1% Lidocaine and they were removed together without difficulty (49 cc of Omnipaque was wasted). Adilia was observed and was without hemodynamic, neurologic, or allergic reactions.? Fluoroscopic images were digitally archived. Adilia's vital signs were stable throughout the procedure and were as recorded in the docflowsheet by the nursing staff.? If given, dosages of intravenous drugs for anxiolysis and analgesia were documented in MAR. Follow up plans and appointments were discussed with Adilia.? Post procedure instruction was given as documented in nursing documentation and having met discharge criteria, Adilia was [facility] from the [facility]. ? COMMENTS: No apparent complications.? Post-procedure pain: VAS= 5/10. If the patient receives at least 50% improvement in pain and/or function for at least 3 months, this procedure can be repeated. I personally completed the entire procedure. JOSH QUILES DO, MPH [facility] - Subspecialty board certification in Pain Medicine [facility]-Center for Pain Management
[2023-07-06 11:54] VITALS: BP 158/90; PULSE 68; RESP 22; O2SAT 98
[2023-07-06] MEDS: Omnipaque 240 MG/ML 50 ML BTL IJ (11:55)
[2023-07-06] MEDS: methylPREDNISolone ACETATE 80 MG/ML VIAL IJ (11:56)
== END 2023-07-06 10:26 | disposition home or self-care (01) ==
LOC: PC 10:25
PROVIDERS: PCP Family Medicine; Visit Provider Preventive Medicine Occupational Medicine
DX: M54.50 Low back pain, unspecified (principal); M54.17 Radiculopathy, lumbosacral region
CPT/HCPCS: 62323; 72100; J1040; Q9967

== ENCOUNTER → 2023-10-07 00:39 | Outpatient (CLI) | payer MEDICARE, SELFPAY | PROVIDERS: PCP Family Medicine; Visit Provider Internal Medicine Cardiovascular Disease | DX: I10 Essential (primary) hypertension (principal); I48.91 Unspecified atrial fibrillation; I77.810 Thoracic aortic ectasia | CPT/HCPCS: 93306 ==

== ENCOUNTER → 2023-11-10 12:42 | Outpatient (BNVA) | payer MEDICARE, SELFPAY | PROVIDERS: PCP Family Medicine; Visit Provider Internal Medicine Interventional Cardiology | DX: I77.810 Thoracic aortic ectasia (principal); I35.1 Nonrheumatic aortic (valve) insufficiency; I48.0 Paroxysmal atrial fibrillation; I10 Essential (primary) hypertension; I48.91 Unspecified atrial fibrillation; E03.9 Hypothyroidism, unspecified; I48.11 Longstanding persistent atrial fibrillation | CPT/HCPCS: 99213 ==

== ENCOUNTER 2023-11-11 01:25 | Outpatient (CLI) | payer MEDICARE, SELFPAY ==
[2023-11-11 15:35] LABS: TSH 1.93 uIU/mL (0.36-3.74)
== END 2023-11-11 01:26 | disposition home or self-care (01) ==
PROVIDERS: PCP Family Medicine; Visit Provider Internal Medicine Interventional Cardiology
DX: E03.9 Hypothyroidism, unspecified (principal)
CPT/HCPCS: 36415; 84443

== ENCOUNTER → 2023-11-16 01:05 | Outpatient (CLI) | payer MEDICARE, SELFPAY ==
--- NOTE | 2023-11-16 07:15 | DI.US_ITS ---
Exam(s) US RENAL EXAM: US RENAL CLINICAL HISTORY: monitoring renal cyst/mass,n28.89. TECHNIQUE: Matamoros scale, color and spectral Doppler were used. COMPARISON: CT CT ABDOMEN PELVIS W from 01/02/2019 MR MR ABDOMEN WO/W from 01/30/2019 US US RENAL from 11/18/2022 US US RENAL from 04/29/2023 MR MR LUMBAR SPINE WO from 05/06/2023 US US ECHOCARDIOGRAM from 10/07/2023 FINDINGS: Renal size in cm: Right: 10.6 left: 14 Echogenicity: Normal Hydronephrosis: No Cyst or mass: Multiple bilateral cysts. The largest on the right measures 5.2 cm maximal dimension. Large on the left measures 7.9 cm in maximal dimension. The cysts imaged show no suspicious feature s. No solid mass is demonstrated which was noted on prior CT and MRI from 2019. Nephrolithiasis: No Bladder:Normal. Prevoid vol:106 cc Postvoid vol: 65 cc Prostate volume 15 cc. IMPRESSION: Ne bilateral renal cysts. No solid masses are identified. However due to overlying bowel gas and pa tient body habitus solid masses are not excluded. Consider evaluation with CT or MRI. DATA REPOSITORY:
== END ==
PROVIDERS: PCP Family Medicine; Visit Provider Nurse Practitioner Gerontology
DX: N28.89 Other specified disorders of kidney and ureter (principal)
CPT/HCPCS: 76770

== ENCOUNTER 2023-11-16 11:23 | Outpatient (CLI) | payer MEDICARE, SELFPAY ==
[2023-11-16 13:00] LABS: HCT 41.1 % (40.0-50.0); HGB 13.8 g/dL (13.5-17.5); MCHC 33.6 % (32.0-36.0); MCV 95 fL (80-95); MPV 9.3 fL (8.0-11.0); Platelet Count 159 10^3/uL (130-400); RBC 4.31 10^6/uL (4.36-5.78); RDW 12.9 % (11.8-14.1); RDW-SD 45.2 fL; WBC 7.57 10^3/uL (4.4-10.8)
[2023-11-16 13:35] LABS: Vitamin B12 530 pg/mL (193-986)
== END 2023-11-16 11:24 | disposition home or self-care (01) ==
LOC: LOS 11:23
PROVIDERS: PCP Family Medicine; Referring Provider Family Medicine; Visit Provider Family Medicine
DX: D64.9 Anemia, unspecified (principal); R53.83 Other fatigue
CPT/HCPCS: 36415; 85027; 82607

== ENCOUNTER → 2023-12-05 13:53 | Outpatient (BNVA) | payer MEDICARE, SELFPAY | PROVIDERS: PCP Family Medicine; Visit Provider Nurse Practitioner Gerontology | DX: N28.89 Other specified disorders of kidney and ureter (principal) | CPT/HCPCS: 99213 ==

== ENCOUNTER → 2023-12-15 00:45 | Outpatient (CLI) | payer MEDICARE, SELFPAY ==
[2023-12-15 14:16] LABS: Estimated GFR 74.68 (mL/min/1.73m2)
--- NOTE | 2023-12-15 14:50 | DI.CT_ITS ---
Exam(s) CT ABDOMEN WO/W EXAM: CT ABDOMEN WO/W CLINICAL HISTORY: Lt renal mass,N28.89,? size TECHNIQUE: Imaging Protocol: Axial computed tomography images with coronal and sagittal reformatted images were created and reviewed CONTRAST MATERIAL: Intravenous: Omnipaque 350 contrast volume:100 mL Oral: No COMPARISON: CT CT ABDOMEN PELVIS W from 01/02/2019 MR MR ABDOMEN WO/W from 01/30/2019 FINDINGS: The examination is limited due to patient motion artifact. ABDOMEN: Lung Bases: Cardiomegaly. Coronary artery calcifications and/or stents. Pulmonary fibrosis is seen in the lung bases. Liver: Normal density. No measurable mass. Portal, Superior Mesenteric, and Splenic Veins: Unremarkable. Gallbladder and Biliary Tract: Status post cholecystectomy. No significant biliary ductal dilatation. Pancreas: Normal density, no abnormal calcifications or inflammatory process. There is an a stable cy st in the head of the pancreas. Spleen: Normal. Adrenals: No masses seen. Kidneys: Normal size, contour and axis. No radiodense stones or obstructive uropathy. In the right ki dney, there again seen several cysts. The largest is in lower pole and measures 4.9 x 3.9 cm. This co mpares to 6.9 x 5.2 cm. No solid masses are seen in the right kidney. In the left kidney, there again seen several cysts. The largest is seen in the lower pole and measures 5.2 x 4.8 cm. (Series 12, stacey ge 363). This compares to 4.5 x 4.2 cm on the prior examination. The hyperdense nodule at the anterio r aspect of the inferior pole of the left kidney measures 2.3 x 2.4 cm. (Series 12, image 389). This compares to 3.4 x 3.4 cm on the prior examination. There is mild hyperdense material seen within the lesion on the noncontrast examination. This may represent calcification. There is again seen a cyst i n the midpole with thin calcifications in the wall. This measures 2.7 x 3.7 cm. (Series 12, image 293 ). This compares to 2.7 x 4.0 cm on the prior examination. There is a 1 x 0.7 cm hyperdense nodule at the anterolateral aspect of the left kidney (series 12, image 330). This has shown slight interval i ncrease in size measuring 0.8 x 0.5 cm on the prior examination. Abdominal Aorta: The infrarenal abdominal aorta measures up to 3 cm in diameter. Atherosclerotic calc ification is present. Bowel: No obstruction or bowel wall thickening. Peritoneal Cavity: No ascites, collection or mesenteric inflammatory response. No free air. Lymph Nodes: Within normal limits. Bones: Within normal limits for the patient's age. Soft Tissues: Unremarkable. IMPRESSION: 1. Previously seen hyperdense nodule in the anterior inferior left kidney now measures 2.3 x 2.4 cm c ompared to 3.4 x 3.4 cm on the prior examination. 2. Slight interval increase in size of a hyperdense nodule at the anterolateral aspect of the left ki dney. MRI may be considered for follow up of these 2 lesions. 3. Multiple bilateral renal cysts. These are simple and require no follow-up. 4. 3 cm infrarenal abdominal aortic aneurysm. RADIATION DOSE DELIVERED: 2,049.42mGy.cm Total DLP DATA REPOSITORY: All CT scans at this facility are submitted to the National Radiology Data Registry (NRDR) Dose Index Registry (DIR) with the [employer] (A[employer]). RADIATION OPTIMIZATION: All CT scans at this facility use at least one of these dose optimization te chniques: automated exposure control; mA and/or kV adjustment per patient size (includes targeted exa ms where dose is matched to clinical indication); or iterative reconstruction.
[2023-12-15] MEDS: Omnipaque 350 MG/ML 100 ML BTL IJ (15:09)
[2023-12-15] MEDS: Normal Saline - Diluent 50 ML VIAL IJ (15:09)
== END ==
PROVIDERS: PCP Family Medicine; Visit Provider Nurse Practitioner Gerontology
DX: N28.89 Other specified disorders of kidney and ureter (principal)
CPT/HCPCS: 74170; 82565; J3490

== ENCOUNTER → 2024-05-10 13:09 | Outpatient (BNVA) | payer MEDICARE, SELFPAY | PROVIDERS: PCP Family Medicine; Visit Provider Internal Medicine Cardiovascular Disease | DX: I48.11 Longstanding persistent atrial fibrillation (principal); I77.810 Thoracic aortic ectasia | CPT/HCPCS: 99213 ==

== ENCOUNTER 2024-05-17 11:03 | Outpatient (CLI) | payer MEDICARE, SELFPAY ==
[2024-05-17 12:27] LABS: Estimated GFR 74.21 (mL/min/1.73m2); Potassium 4.4 mmol/L (3.5-5.1)
[2024-05-17 12:44] LABS: Hemoglobin A1C 5.7 % (<5.7)
== END 2024-05-17 11:04 | disposition home or self-care (01) ==
LOC: LOS 11:03
PROVIDERS: PCP Family Medicine; Visit Provider Family Medicine
DX: I10 Essential (primary) hypertension (principal); E11.51 Type 2 diabetes mellitus with diabetic peripheral angiopathy without gangrene; I70.209 Unspecified atherosclerosis of native arteries of extremities, unspecified extremity; M54.59 Other low back pain
CPT/HCPCS: 36415; 82565; 83036; 84132

== ENCOUNTER 2024-06-07 02:20 | Outpatient (CLI) | payer MEDICARE, SELFPAY ==
--- NOTE | 2024-06-07 07:30 | DI.US_ITS ---
Exam(s) US RENAL EXAM: US RENAL CLINICAL HISTORY: monitoring size of renal mass,renal cyst,n28.1,n28.89. TECHNIQUE: [place] scale, color and spectral Doppler were used. COMPARISON: US US RENAL from 11/16/[address] ABDOMEN WO/W from 12/15/2023 FINDINGS: Renal size in cm: Right: 10.6. Left: 14.2. Echogenicity: Normal. Hydronephrosis: No. Cyst or mass: There are numerous bilateral simple renal cysts present. The largest on the right wen ures 5.2 x 2.6 x 4.6 cm. The largest on the left measures 5.5 x 2.8 x 7.9 cm. The solid mass in the inferior pole of the left kidney is not well visualized on this examination. Nephrolithiasis: No. Other findings: None. Bladder:Normal. Ureteral jets: Right: Visualized and unremarkable. Left: Visualized and unremarkable. Prevoid vol:106 cc Postvoid vol:66 cc Prostate: 15 cc Renal color flow: Symmetric and within normal limits. IMPRESSION: 1. Multiple bilateral renal cysts. 2. The solid renal mass at the anterior inferior aspect of the left kidney is not well visualized on this examination. MRI should be considered for further evaluation. 3. Moderate size postvoid urinary bladder residual. DATA REPOSITORY:
== END 2024-06-07 02:40 ==
LOC: DI 02:20
PROVIDERS: PCP Family Medicine; Visit Provider Nurse Practitioner Gerontology
DX: N28.89 Other specified disorders of kidney and ureter (principal); M51.36 Other intervertebral disc degeneration, lumbar region
CPT/HCPCS: 76770

== ENCOUNTER 2024-06-07 02:20 | Outpatient (CLI) | payer MEDICARE, SELFPAY ==
--- NOTE | 2024-06-07 11:21 | DI.RAD_ITS ---
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 TECHNIQUE: 2D digital imaging was performed of the lumbar spine. Four images were obtained. AP, la teral, flexion and extension views were obtained. COMPARISON: CR XR LUMBAR SPINE COMPLETE from 08/05/2021 FINDINGS: BONES: No fracture or destructive lesion. There are endplate osteophytes anteriorly throughout the shira mbar spine. There are large bridging lateral osteophytes also seen in the spine. There are degenera tive changes of the facets throughout the lumbar spine. DISKS: There is disc space narrowing from L1-L2 through L4-L5. ALIGNMENT: Lumbar spinal alignment is within normal limits. There is no subluxation with flexion or extension. No spondylolysis or spondylolisthesis. SOFT TISSUE: Vascular calcifications are present. IMPRESSION: Marked degenerative changes in the lumbar spine. No significant subluxation is seen with flexion or extension. DATA REPOSITORY: RADIATION DOSE DELIVERED:
== END 2024-06-07 02:40 ==
LOC: DI 02:20
PROVIDERS: PCP Family Medicine; Visit Provider Physician Assistant Medical
DX: M47.816 Spondylosis without myelopathy or radiculopathy, lumbar region (principal)
CPT/HCPCS: 72120

== ENCOUNTER 2024-06-15 00:07 | Outpatient (CLI) | payer MEDICARE, SELFPAY ==
--- NOTE | 2024-06-15 | DI.MRI_ITS ---
Exam(s) MR LUMBAR SPINE WO EXAM: MR LUMBAR SPINE WO CLINICAL HISTORY: WORSENING BACK AND LEG SX FOR YRS, M48.062. TECHNIQUE: Multiplanar multisequence MRI of the Lumbar spine was performed. COMPARISON: CR XR CHEST 2V PA LATERAL from 02/12/2019 MR MR LUMBAR SPINE WO from 05/06/2023 CR XR LUMBAR SPINE FLEX/EXT ONLY from 06/07/2024 FINDINGS: Bones: The last intervertebral disc space is designated the S1-2 level for the numbering purpose of this exa mination. There is rudimentary disc at this level. The vertebral body heights are well maintained. Prominent endplate osteophytes throughout. Alignment: Mild degenerative scoliosis. The marrow signal characteristics are unremarkable. Hemangioma L1. Cord: The conus tip ends at the T12 L1 level. It is of normal size and signal intensity. T12-L1: No focal disc herniation is present. No central spinal canal stenosis.No neural foraminal st enosis. L1-2:Mild disc bulging. Mild facet degenerative changes. No focal disc herniation is present. No c entral spinal canal stenosis.No neural foraminal stenosis. L2-3:Moderate to severe loss of disc height, eccentric toward the left. Prominent endplate osteophyt es. Mild facet degenerative changes. Moderate central canal stenosis, similar to prior. Bilateral neural foraminal narrowing. L3-4: Severe loss of disc height. Prominent broad-based endplate osteophytes. Facet degenerative ch anges. Severe central canal stenosis. Neural foraminal narrowing, right greater than left.No focal disc herniation is present. L4-5:Severe loss of disc height on the right. Prominent endplate osteophytes greater on the right. Severe right and moderate left neural foraminal narrowing. Moderate central canal stenosis. No foca l disc herniation is present. L5-S1: Small endplate osteophytes. Partial fusion of the disc space again noted. Mild central canal stenosis.No focal disc herniation is present. No neural foraminal stenosis. The visualized SI joints and sacrum are unremarkable. Soft tissues: Muscular atrophy of the posterior paraspinal muscles.. Bilateral renal cysts. IMPRESSION: Severe degenerative disc changes is also facet degenerative changes combine to produce severe central canal stenosis at L3-4. Moderate cell intra canal stenosis noted at L2-3 and L4-5. Findings simila r to prior exam.. DATA REPOSITORY:
== END 2024-06-15 00:27 ==
LOC: DI 00:08
PROVIDERS: PCP Family Medicine; Visit Provider Physician Assistant Medical
DX: M48.062 Spinal stenosis, lumbar region with neurogenic claudication (principal)
CPT/HCPCS: 72148

== ENCOUNTER → 2024-06-19 09:49 | Outpatient (BNVA) | payer MEDICARE, SELFPAY | PROVIDERS: PCP Family Medicine; Referring Provider Family Medicine; Visit Provider Nurse Practitioner Gerontology | DX: N28.89 Other specified disorders of kidney and ureter (principal); N40.2 Nodular prostate without lower urinary tract symptoms | CPT/HCPCS: 99213 ==

== ENCOUNTER 2024-08-30 02:22 | Outpatient (CLI) | payer MEDICARE, SELFPAY ==
--- NOTE | 2024-08-30 | DI.MRI_ITS ---
Exam(s) MR THORACIC SPINE WO EXAM: MR THORACIC SPINE WO CLINICAL HISTORY: M48.04,M54.14 Spinal stenosis of thoracic region w/radiculopathy. TECHNIQUE: Multiplanar multisequence MRI of the Thoracic spine was performed. COMPARISON: CR XR LUMBAR SPINE FLEX/EXT ONLY from 06/07/2024 FINDINGS: Bones: The vertebral body heights are well maintained. Alignment is satisfactory. The marrow signal characteristics are unremarkable. Cord: The thoracic cord is normal size and signal intensity. No intrinsic cord lesion is present. Soft tissues: Normal. T1-2: No disc herniation or bulge is identified. T2-3: Small endplate osteophytes. No central canal stenosis or neural foraminal narrowing. T3-4: No disc herniation or bulge is identified. T4-5: No disc herniation or bulge is identified. T5-6: No disc herniation or bulge is identified. T6-7: No disc herniation or bulge is identified. T7-8: No disc herniation or bulge is identified. Severe loss of disc height. T8-9: Prominent endplate osteophytes projecting mainly anteriorly. Minimal disc bulging. Facet dege nerative changes cause severe bilateral neural foraminal narrowing. No central canal stenosis. T9-10: No disc herniation or bulge is identified. T10-11:Prominent endplate osteophytes projecting mainly anteriorly. Mild posterior disc bulging. Prom inent facet degenerative changes in. The combination of degenerative changes causes narrowing of the AP dimension of the central canal to 6 to 7 millimeters. [id number] bilateral neural foraminal narrowing also present. T11-12: No disc herniations or bulges are present. T12-L1: No disc herniations or bulges are present. IMPRESSION: Posterior disc bulging combines with prominent facet degenerative changes to cause moderate central c anal stenosis and [id number] bilateral neural foraminal narrowing at T10-11. Severe bilateral neural foraminal narrowing mainly secondary to facet spurring at T8-9. DATA REPOSITORY:
== END 2024-08-30 02:42 ==
LOC: DI 02:22
PROVIDERS: PCP Family Medicine; Visit Provider Physician Assistant Medical
DX: M48.02 Spinal stenosis, cervical region (principal); M99.63 Osseous and subluxation stenosis of intervertebral foramina of lumbar region
CPT/HCPCS: 72146

== ENCOUNTER 2024-09-25 01:05 | Outpatient (CLI) | payer MEDICARE, SELFPAY ==
--- NOTE | 2024-09-25 | DI.MRI_ITS ---
Exam(s) MR CERVICAL SPINE WO EXAM: MR CERVICAL SPINE WO CLINICAL HISTORY: Rt leg pain, M79.604, difficulty walking, R26.2, leg burning and tingling TECHNIQUE: Multiplanar multisequence MRI of the cervical spine was performed without intravenous con trast. COMPARISON: No exams were available for comparison FINDINGS: BONES: Vertebral body heights are maintained. Alignment is normal. Bone marrow signal intensity is wi thin normal limits. CERVICAL CORD: Craniovertebral junction is unremarkable. The cervical cord is normal size and signal intensity. SOFT TISSUES: Unremarkable. C2-3: No disc herniation or bulge is identified. No evidence of neural foraminal narrowing. No signi ficant central canal stenosis. C3-4: Severe loss of disc height. Prominent endplate osteophytes and disc bulging projecting circumf erentially. Narrowing of the AP dimension of the central canal greater on the left to 5 millimeters. Severe bilateral neural foraminal narrowing. C4-5: The disc height is maintained. There are small endplate osteophytes which are eccentric toward the left causing neural foraminal narrowing. No significant central canal stenosis. C5-6: The disc height is maintained. There are small endplate osteophytes and mild disc bulging.No e vidence of neural foraminal narrowing. No significant central canal stenosis. C6-7: Postsurgical changes of partial fusion between the discs. Small endplate osteophytes. No tamara dence of neural foraminal narrowing. No significant central canal stenosis. C7-T1: Moderate loss of disc height. Endplate osteophytes eccentric toward the right causing mild ri ght and severe left neural foraminal narrowing. No significant central canal stenosis. IMPRESSION: Severe degenerative disc changes at C3-4 causing narrowing of the small AP dimension of the central c anal is also severe bilateral neural foraminal narrowing. Neural foraminal narrowing there is seen a t the more inferior levels to a lesser extent. No evidence of disc herniation. DATA REPOSITORY:
== END 2024-09-25 01:25 ==
LOC: DI 01:05
PROVIDERS: PCP Family Medicine; Visit Provider Physician Assistant Medical
DX: M48.062 Spinal stenosis, lumbar region with neurogenic claudication (principal)
CPT/HCPCS: 72141

== ENCOUNTER 2024-10-26 17:42 | Emergency (ER) | payer MEDICARE, SELFPAY ==
[2024-10-26 17:44] VITALS: BP 182/101; PULSE 65; RESP 18; TEMP 36.7; O2SAT 98
--- NOTE | 2024-10-26 18:15 | DI.CT_ITS ---
Exam(s) CT HEAD CERVICAL SPINE WO EXAM: CT HEAD CERVICAL SPINE WO CLINICAL HISTORY: fall, HI, eliquis. TECHNIQUE: Imaging Protocol: Axial computed tomography images with coronal and sagittal reformatted images were created and reviewed COMPARISON: No exams were available for comparison FINDINGS: Head CT Ventricles and Extra axial spaces: Normal in size and morphology for the patient's age. Hemorrhage: None. Cerebral parenchyma: No evidence of mass or acute infarct. Mild atrophy, consistent with age. White matter changes of small vessel disease. Midline shift: None. Brainstem/Cerebellum: Normal. Calvarium: Normal. Visualized Paranasal sinuses/Mastoids: Clear. Soft tissues: Frontal scalp swelling. Cervical Spine CT BONES: Vertebral body heights are maintained. Alignment is normal. There is no evidence of acute frac ture. Advanced degenerative disc changes and facet degenerative changes are seen. There is central canal s tenosis at C3-4. There is multilevel neural foraminal narrowing. SOFT TISSUES: No paraspinal hematoma. The airway appears intact. No pneumothorax is seen at the lung apices. IMPRESSION: Head CT: No acute abnormality. C-spine CT: Degenerative changes, no acute abnormality. RADIATION DOSE DELIVERED: Total DLP DATA REPOSITORY: All CT scans at this facility are submitted to the National Radiology Data Registry (NRDR) Dose Index Registry (DIR) with the [employer] (A[employer]). RADIATION OPTIMIZATION: All CT scans at this facility use at least one of these dose optimization te chniques: automated exposure control; mA and/or kV adjustment per patient size (includes targeted exa ms where dose is matched to clinical indication); or iterative reconstruction.
[2024-10-26] MEDS: Lidocaine/Epinephri/Tetracaine Topical Gel 3 ML TP (18:37)
[2024-10-26] MEDS: Lidocaine 1% Pres-Free W/EPI 1/200,000 30 ML VIAL (20:17)
[2024-10-26] MEDS: Bacitracin 1 PACKET (20:17)
[2024-10-26 20:18] VITALS: BP 157/90; PULSE 64; RESP 20; O2SAT 97
--- NOTE | 2024-10-26 22:46 | W.ED.GENAD ---
Discharge Plan Disposition Patient Disposition: Home Condition: Stable Discharge Details Clinical Impression: Head injury, Facial laceration, Chronic anticoagulation Primary Care Provider: Ho Morrissey ED Provider: Kiah Win Home Meds and New Rx's Prescriptions: Continued triamcinolone acetonide 0.1 % ointment 1 applic Topical BID PRN (Reason: intertrigo) Qty: 80 1RF Metamucil 3.4 gram/5.4 gram powder 1 tbsp PO BID Qty: 660 11RF lutein 6 mg tablet 6 mg PO DAILY Qty: 90 3RF Rx Instructions: give with meal/snack per optometry for Mac. Degen lisinopril 40 mg tablet 40 mg PO DAILY Qty: 90 3RF hydrochlorothiazide 25 mg tablet 25 mg PO DAILY Qty: 90 4RF levothyroxine [Synthroid] 50 mcg tablet 50 mcg PO DAILY Qty: 90 4RF apixaban 2.5 mg tablet 2.5 mg PO BID Qty: 180 3RF spironolactone [Aldactone] 25 mg tablet 12.5 mg PO DAILY Qty: 45 3RF glucosamine sulfate 1,000 MG capsule 1,000 mg PO BID CENTRUM SILVER TABLET 1 EACH tablet 1 tab PO DAILY acetaminophen [Tylenol Extra Strength] 500 MG tablet 2 tab PO TID PRN omeprazole 40 mg capsule,delayed release(DR/EC) 40 mg PO DAILY Qty: 90 3RF potassium chloride [Klor-Con M10] 10 mEq tablet,ER particles/crystals 1,000 meq PO BID Patient Comments: per pt med card and verbal confirmation rosuvastatin [Crestor] 10 mg tablet 10 mg PO .pm Discharge Instructions Instructions: Laceration Repair With Stitches ED Additional Instructions: take tylenol as needed for pain suture removal in 7 days tomorrow may remove dressing and allow to air dry skip eliquis tonight with vomiting, head injury, or should any new concers arise, please return Referrals: oH Morrissey MD [Primary Care Provider] - 1 week HPI General Date/Time Provider Initiated Documentation: 10/26/24 17:57. HPI Narrative: This is a mookie 83-year-old gentleman who is presenting post fall. Patient states that he was walking up his driveway when he lost his balance on ice, landing on his face. He denies any loss of consciousness but is anticoagulated for history of atrial fibrillation. He denies any current headache but does have pain over the area of bleeding. He has been ambulatory since the event occurred per patient. He denies any vomiting and does report some stiffness to his neck. He denies any strength or sensation changes or any additional complaints. Denies any chest pain or shortness of breath. Related Data Home Medications ?Medication ?Instructions ?Recorded ?Confirmed Centrum Silver Tablet 1 tab PO DAILY 03/02/13 10/26/24 glucosamine sulfate 1,000 mg 1,000 mg PO BID 03/02/13 10/26/24 capsule acetaminophen 500 mg tablet 2 tab PO TID PRN 02/24/18 10/26/24 (Tylenol Extra Strength) lutein 6 mg tablet 6 mg PO DAILY #90 tabs 11/09/22 10/26/24 psyllium husk 3.4 gram/5.4 gram 1 tbsp PO BID #660 grams 11/09/22 10/26/24 oral powder (Metamucil) triamcinolone acetonide 0.1 % 1 applic topical BID PRN 05/12/23 10/26/24 topical ointment intertrigo #80 grams hydrochlorothiazide 25 mg tablet 25 mg PO DAILY #90 tab-caps 11/16/23 10/26/24 levothyroxine 50 mcg tablet 50 mcg PO DAILY #90 tab-caps 11/16/23 10/26/24 (Synthroid) lisinopril 40 mg tablet 40 mg PO DAILY #90 tab-caps 11/16/23 10/26/24 omeprazole 40 mg capsule,delayed 40 mg PO DAILY #90 caps 03/12/24 10/26/24 release apixaban 2.5 mg tablet 2.5 mg PO BID #180 tabs 05/17/24 10/26/24 spironolactone 25 mg tablet 12.5 mg (1/2 x 25 mg) PO DAILY #45 05/17/24 10/26/24 (Aldactone) tabs potassium chloride 10 mEq 1,000 meq PO BID 10/26/24 10/26/24 tablet,extended release(part/cryst) (Klor-Con M) rosuvastatin 10 mg tablet (Crestor) 10 mg PO .pm 10/26/24 10/26/24 Previous Rx's ?Medication ?Instructions ?Recorded lutein 6 mg tablet 6 mg PO DAILY #90 tabs 11/09/22 psyllium husk 3.4 gram/5.4 gram 1 tbsp PO BID #660 grams 11/09/22 oral powder (Metamucil) triamcinolone acetonide 0.1 % 1 applic topical BID PRN 05/12/23 topical ointment intertrigo #80 grams hydrochlorothiazide 25 mg tablet 25 mg PO DAILY #90 tab-caps 11/16/23 levothyroxine 50 mcg tablet 50 mcg PO DAILY #90 tab-caps 11/16/23 (Synthroid) lisinopril 40 mg tablet 40 mg PO DAILY #90 tab-caps 11/16/23 omeprazole 40 mg capsule,delayed 40 mg PO DAILY #90 caps 03/12/24 release apixaban 2.5 mg tablet 2.5 mg PO BID #180 tabs 05/17/24 spironolactone 25 mg tablet 12.5 mg (1/2 x 25 mg) PO DAILY #45 05/17/24 (Aldactone) tabs Allergies Allergy/AdvReac Type Severity Reaction Status Date / Time amlodipine AdvReac Intermediate Swelling/Ed Verified 10/26/24 17:51 estiven rofecoxib AdvReac Mild Nausea Verified 10/26/24 17:51 General Stated Complaint: HeadInjury JEFRY: 3 Exam Narrative Exam Narrative: Alert and oriented 83-year-old male with approximately 1 inch laceration on right forehead region with abrasions, no hemotympanum, pupils equal round reactive to light and accommodation, no paraspinal tenderness or visible signs of trauma, nasal signs of chest wall trauma, no abdominal tenderness, alert and oriented x 4, GCS 15, ambulatory steady gait, strength and sensation intact distally in all 4 extremities Course Vital Signs Vital signs: Vital Signs Temperature 36.7 C 10/26/24 17:44 Pulse 65 10/26/24 17:44 Respiratory Rate 18 10/26/24 17:44 Blood Pressure 182/101 H 10/26/24 17:44 Pulse Oximetry 98 10/26/24 17:44 Temperature 36.7 C 10/26/24 17:44 Pulse 64 10/26/24 20:18 Respiratory Rate 20 10/26/24 20:18 Respiratory Effort Normal 10/26/24 18:26 Respiratory Depth Normal 10/26/24 18:26 Respiratory Pattern Normal 10/26/24 18:26 Blood Pressure 157/90 H 10/26/24 20:18 Blood Pressure Position Sitting 10/26/24 17:44 Pulse Oximetry 97 10/26/24 20:18 Oxygen Delivery Method Room Air 10/26/24 17:44 Oxygen Flow Rate 0 10/26/24 17:44 Pain Level 5 10/26/24 17:44 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 Sutures were placed, 4 and patient's forehead laceration and coagulation was achieve. Patient will be discharged home in the care of his daughter and lives with his will keep an eye on him this evening. He will skip a dose of Eliquis this evening. He is in rate controlled atrial fibrillation at this time. Patient does not have chest pain or abdominal pain. He is in no acute distress and is ambulatory with steady gait discharge home tetanus is up-to-date as he received it today. Quality:SDOH Health Related Social Needs: No Data to Display PFSH All Active Problems Chronic anticoagulation (Acute) Facial laceration (Acute) Head injury (Acute) Neuropathy (Acute) Cold extremities (Acute) Atrial fibrillation (Chronic) Lumbar radiculopathy (Acute) Epistaxis (Acute) Ascending aorta dilatation (Acute) Unilateral primary osteoarthritis, left knee (Acute) Localized osteoarthritis of right knee (Acute) Spinal stenosis, lumbar region with neurogenic claudication (Acute) Osteoarthritis of right hip (Acute) Right hip pain (Acute) Balance disorder (Acute) Paroxysmal atrial fibrillation (Acute) Internal and external bleeding hemorrhoids (Acute) Status post laparoscopic cholecystectomy (Chronic 01/14/14) Post-op bleeding (Chronic 01/14/14) Actinic keratitis (Chronic) Basal cell carcinoma of skin (Chronic) basal cell-removed Chronic dermatitis (Chronic) Essential hypertension (Chronic) External hemorrhoids (Chronic) 12/26/15; DR. 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) Tinnitus (Chronic) Unspecified hemorrhoids without mention of complication (Chronic) Diastasis recti (Chronic) Gastroesophageal reflux disease (Chronic) Renal mass (Chronic) Weight loss, abnormal (Chronic) due to gastritis Status post vasectomy (Chronic) Status post rotator cuff repair (Chronic) Status post inguinal hernia repair (Chronic) Status post carpal tunnel release (Chronic) Rotator cuff syndrome (Chronic 02/20/14) 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) History of spinal surgery (Chronic) History of skin surgery (Chronic) History of cataract removal with insertion of prosthetic lens (Chronic) History of arthroscopy of knee (Chronic) History of appendectomy (Chronic) Heart murmur (Chronic) Carpal tunnel syndrome (Chronic 02/20/14) Acute cholecystitis (Chronic 02/20/14) Acute appendicitis (Chronic 02/20/14) Preoperative cardiovascular examination (Acute) LLQ pain (Acute) Renal mass (Acute) Aortic insufficiency (Acute) needs yearly echo 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 BACK SURGERY L5-S1 Arthroplasty of knee Per pt. no replaced, jsut meniscus repair-RIGHT Appendectomy Family History Mother , AGE 97 Heart disease Father , AGE 78 Heart disease Sister No problems noted. Sister , AGE 78 Breast cancer Brother No problems noted. Maternal Grandfather , AGE 78 No problems noted. Paternal Grandfather , AGE 71 No problems noted. Maternal Grandmother , AGE 85 No problems noted. Paternal Grandmother , AGE 75 No problems noted. Son No problems noted. Daughter No problems noted. Social History Smoking/Tobacco Use Status: Never Second Hand Exposure: Yes Smoking risk assessment performed?: Yes Alcohol Intake: former Drug use: Never Substance use type: does not use Caregiver/Support person: No Household members: spouse Housing: house Communication Needs: Corrective Lenses Do you need help understanding health information?: Rarely current occupation: Retired Pets and animals: No Sexually active: No Do you think of yourself as: straight/heterosexual Current gender identity: male What is your relationship status?: How often do you talk on the phone with friends or family?: three or more times per week How often do you get together with friends or relatives?: once per week How often do you attend orthodoxy or taoist services?: 1-3 times per year Do you belong to any clubs or organized social groups?: no Panel score (0-1 are the most socially isolated patients): 2 What type of physical activity do you participate in: walking, bicycling and other Details: Stretches Duration: 15-30 minutes/day Frequency: daily Jaimee/Synagogue: Religion Special jaimee needs: No Seatbelt use: always Helmet use: No Drive intox or ride w/intox 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
== END 2024-10-26 20:18 | disposition home or self-care (01) ==
PROVIDERS: Emergency Provider Physician Assistant; PCP Family Medicine
DX: S01.81XA Laceration without foreign body of other part of head, initial encounter (principal); Z79.01 Long term (current) use of anticoagulants; W00.0XXA Fall on same level due to ice and snow, initial encounter
CPT/HCPCS: 12011; 99284; 70450; 72125; 99283; J2004

== ENCOUNTER 2024-10-30 01:14 | Outpatient (CLI) | payer MEDICARE, SELFPAY ==
--- NOTE | 2024-10-30 12:31 | DI.US_ITS ---
APPROVED REPORT EXAM: Comprehensive 2D, Doppler, and color-flow Echocardiogram Patient Location: Out-Patient Refrigerator Cabinetmaker: Kari Springer RDCS ([place]) Indications: LV Function, Ascending aorta dilation, Atrial Fibrillation Other Information Study Quality: Adequate. Technically limited study due to body habitus subcostal imaging is limited.. Conclusion Concentric left ventricular hypertrophy. Ejection fraction is 55 to 60%. Wall motion is normal Normal right ventricular size and function Both atria are severely enlarged Aortic valve is trileaflet with mild regurgitation Mitral annular calcification. Moderate mitral regurgitation Mild to moderate tricuspid regurgitation. 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 The left ventricular systolic function is normal. The left ventric ular ejection fraction is within the normal range. concentric left ventricular hypertrophy. There is normal LV segmental wall motion. LVEF is 55%. Right Ventricle The right ventricle is normal size. The right ventricular systolic function is normal. Atria Left atrium is severely dilated. Right atrium is severely dilated. The interatrial septum is intact w ith no evidence for an atrial septal defect. Aortic Valve The aortic valve is normal in structure. Aortic valve is trileaflet. There is no aortic valvular sten osis. Mild aortic regurgitation. Mitral Valve Mitral annular calcification. No evidence of mitral valve stenosis. Moderate mitral regurgitation. Tricuspid Valve The tricuspid valve is normal in structure. There is no tricuspid valve stenosis. Mild to moderate tr icuspid regurgitation. The RVSP is 33.6 mmHg. Pulmonic Valve The pulmonary valve is normal in structure. There is no pulmonic valvular stenosis. Trace pulmonic re gurgitation. Great Vessels Aortic root is mildly dilated. The ascending aorta is moderately dilated. Aortic arch is normal in ca liber. IVC is normal in size and collapses >50% with inspiration. Pericardium Technically limited subcostal imaging. 2D Dimensions IVSD d PLAX 1.62 cm M: 0.6-1.2 Ao Root d 4.10 cm M: 3.1 - 3.7 LVPW d PLAX 1.60 cm M: 0.6 - 1.2 Ao Asc Diam d 4.80 cm M: 2.6 - 3.4 LVID d PLAX 5.42 cm M: 4.2 - 5.8 LVDs 3.84 cm M: 2.5 - 4.0 LV EF Teichholz 55.6 % FS 29.26 % LV EDV (Teich) 142.8 mL LV ESV (Teich) 63.4 mL M-Mode TAPSE 2.10 cm (M/F) >1.7 Auto EF LV EDV A4C 154.4 mL LV EDV A2C 177.6 mL LV EDV BP 165.6 mL LV ESV A4C 69.8 mL LV ESV A2C 80.1 mL LV ESV BP 74.6 mL LVEF(%) A4C 54.8 % LVEF(%) A2C 54.9 % LVEF(%) BP 54.9 % LV SV A4C 84.7 ml LV SV A2C 97.5 ml LV SV BP 91.0 ml LV CO A4C 4.8 L/min LV CO A2C 5.8 L/min LV CO BP 5.3 L/min HR A4C 57.05 BPM HR A2C 59.10 BPM LV EDV Index (BP) LA Volume LA Length A4C 8.2 cm LA Length A2C 6.7 cm LA Area A4C s 41.34 cm2 LA Area A2C s 42.04 cm2 LA Vol A4C A-L 176.52 mL LA Vol A2C A-L 225.39 mL LA Vol Biplane A-L 221.4 mL LA Vol/BSA A4C A-L LA Vol/BSA A2C A-L LA Vol/BSA BP A-L 103.0 mL/m2 LA Vol A4C MOD 167.7 mL LA Vol A2C MOD 208.9 mL LA Vol BP MOD 201.3 mL RA Volume RA Area A4C 30.1 cm2 RA ESV A4C (A-L) 85.1mL RA Vol/BSA A4C A-L RA Length A4C 9.1 cm RA ESV A4C (MOD) 80.9mL LV Diastology MV E' medial 0.087 (>0.07 m/s) MV E Vmax 1.00 (0.4-1.3 m/s) MV E' lateral 0.134 (>0.1 m/s) Aortic Valve AoV Vmax 1.82 m/s LVOT Vmax 0.90 m/s AoV Peak Grad 45.2 mmHg LVOT Peak Grad 3.3 mmHg AoV Area (Vmax) 1.57 cm2 LVOT VTI 0.193 m AoV VTI 0.400 m LVOT Mean Grad 1.5 mmHg AoV Mean Michi. 1.19 m/s LVOT SV 61.06 mL AoV Mean Grad 6.8 mmHg LVOT Diam s 2.00 cm AoV Area (VTI) 1.53 cm2 AV Regurg Peak Gr. 13.22 mmHg Velocity Ratio 0.49 AR Decel [place] 1.5m/sec2 AR DT 2839 msec AR PHT 823 msec AR Vmax 4.39 m/s Mitral Valve MV Vmax TIPS 1.20 m/s MR Vmax 5.60 m/s MV Mean Grad 1.9 (<2mmHg) MR VTI 1.755 m MV Area PHT 4.97 cm2 MR Peak Grad 125.4 mmHg MV VTI 0.424 m MR Mean Grad 97.2 mmHg Pulmonary Valve PV Vmax 0.97 (0.5-1.5 m/s) RVOT Vmax 0.70 m/s PV Peak Grad 3.7 mmHg RVOT Peak Gr. 1.9 mmHg PV Mean Michi 0.64 m/s RVOT VTI 0.119 m PV Mean Grad 2.0 mmHg RVOT Mean Gr. 1.0 mmHg Tricuspid Valve RA Pressure 3.00 mmHg TR Vmax 2.76 m/s TV S' 0.08 m/s TR Peak Grad 30.5 mmHg RVSP (TR) 33.6 mmHg
== END 2024-10-30 01:34 ==
LOC: DI 01:14
PROVIDERS: PCP Family Medicine; Visit Provider Internal Medicine Cardiovascular Disease
DX: I51.7 Cardiomegaly (principal)
CPT/HCPCS: 93306

== ENCOUNTER → 2024-11-08 13:44 | Outpatient (BNVA) | payer MEDICARE, SELFPAY | PROVIDERS: PCP Family Medicine; Visit Provider Internal Medicine Cardiovascular Disease | DX: I77.810 Thoracic aortic ectasia (principal); I35.1 Nonrheumatic aortic (valve) insufficiency; I48.0 Paroxysmal atrial fibrillation | CPT/HCPCS: 99213 ==

== ENCOUNTER 2024-12-13 00:34 | Outpatient (CLI) | payer MEDICARE, SELFPAY ==
--- NOTE | 2024-12-13 06:45 | DI.US_ITS ---
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 TECHNIQUE: Matamoros scale, color and spectral Doppler were used. COMPARISON: CT CT ABDOMEN WO/W from 12/15/2023 US US RENAL from 06/07/2024 MR MR LUMBAR SPINE WO from 06/15/2024 FINDINGS: Renal size in cm: Right: 12.5. Left: 11.2. Echogenicity: Normal. Hydronephrosis: No. Cyst or mass: There are multiple bilateral simple renal cysts. The largest on the right measures 5.0 x 3.4 x 3.5 cm. The largest on the left measures 4.8 x 5.4 x 5.0 cm. There is a 3.1 x 2.3 x 2.4 cm solid hypoechoic mass at the inferior aspect of the left kidney. This corresponds to the new lesion seen on the CT scan. Again, a neoplasm should be considered. MRI should be considered for further evaluation. Nephrolithiasis: No. Other findings: None. Bladder:Normal. Ureteral jets: Right: Visualized and unremarkable. Left: Visualized and unremarkable. Prevoid vol:355 cc Postvoid vol:48 cc Prostate: 22 cc Renal color flow: Symmetric and within normal limits. IMPRESSION: 1. Multiple bilateral simple renal cysts. 2. 3.1 x 2.3 x 2.4 cm solid hypoechoic mass at the inferior pole of the left kidney. Neoplasm should be considered. MRI may be obtained for further evaluation. 3. Moderate size postvoid urinary bladder volume. DATA REPOSITORY:
== END 2024-12-13 00:54 ==
LOC: DI 00:34
PROVIDERS: PCP Family Medicine; Visit Provider Nurse Practitioner Gerontology
DX: N28.89 Other specified disorders of kidney and ureter (principal); N40.3 Nodular prostate with lower urinary tract symptoms
CPT/HCPCS: 76770

== ENCOUNTER → 2024-12-26 09:53 | Outpatient (BNVA) | payer MEDICARE, SELFPAY | PROVIDERS: PCP Family Medicine; Visit Provider Nurse Practitioner Gerontology | DX: N28.89 Other specified disorders of kidney and ureter (principal) | CPT/HCPCS: 99213 ==

== ENCOUNTER 2025-05-06 08:58 | Outpatient (CLI) | payer MEDICARE, SELFPAY ==
--- NOTE | 2025-05-06 08:45 | RT.EKG_ITS ---
APPROVED REPORT Exam: Resting ECG Reason for Exam: afib Patient Location: O HR:59 bpm ECG Measurements Heart Rate 59 AXIS MI 116 P 0 QRSd 117 QRS -44 QT 421 T 45 QTc 417 Conclusion Sinus rhythm...normal P axis, V-rate 50- 99 Ventricular premature complex...V complex w/ short R-R interval Borderline short MI interval...MI int <120mS Left anterior fascicular block...axis(240,-40), init forces inf
== END 2025-05-06 08:59 | disposition home or self-care (01) ==
LOC: DI.CARD 08:58
PROVIDERS: PCP Family Medicine; Visit Provider Registered Nurse
DX: I48.0 Paroxysmal atrial fibrillation (principal)
CPT/HCPCS: 93010

== ENCOUNTER → 2025-05-06 14:02 | Outpatient (BNVA) | payer MEDICARE, SELFPAY | PROVIDERS: PCP Family Medicine; Visit Provider Registered Nurse | DX: I48.0 Paroxysmal atrial fibrillation (principal); I77.810 Thoracic aortic ectasia; I10 Essential (primary) hypertension; Z79.811 Long term (current) use of aromatase inhibitors; Z79.01 Long term (current) use of anticoagulants; Z79.02 Long term (current) use of antithrombotics/antiplatelets | CPT/HCPCS: 99214; 93005 ==

== ENCOUNTER → 2025-05-14 14:16 | Outpatient (BNVA) | payer MEDICARE, SELFPAY | PROVIDERS: PCP Family Medicine; Referring Provider Family Medicine; Visit Provider Psychiatry & Neurology Neurology | DX: M48.062 Spinal stenosis, lumbar region with neurogenic claudication (principal); G62.9 Polyneuropathy, unspecified | CPT/HCPCS: 95885; 95909; 99215; G2212 ==

== ENCOUNTER 2025-06-19 01:17 | Outpatient (CLI) | payer MEDICARE, SELFPAY ==
--- NOTE | 2025-06-19 07:30 | DI.US_ITS ---
Exam(s) US RENAL EXAM: US RENAL CLINICAL HISTORY: monitoring renal cysts/renal mass,n28.89. TECHNIQUE: Matamoros scale, color and spectral Doppler were used. COMPARISON: US US RENAL from 12/13/2024 FINDINGS: Renal size in cm: Right: 10.3. Left: 10.6. Echogenicity: Normal. Hydronephrosis: No. Cyst or mass: There are bilateral simple renal cysts which appears stable. No follow-up is recommended. The largest on the right measures 4.5 x 2.9 x 4.1 cm. The largest on the left measures 5.3 x 4.1 x 4.7 cm. There is again seen a solid hypoechoic mass in the inferior pole of the left kidney. It measures 3.1 x 3.0 x 2.7 cm on the current examination. This compares to 3.1 x 2.3 x 2.4 cm on the prior examination. Nephrolithiasis: No. Other findings: None. Bladder:Normal. Ureteral jets: Right: Not visualized on this examination. Left: Visualized and unremarkable. Prevoid vol:389 cc Postvoid vol:204 cc Prostate: 21 cc Renal color flow: Symmetric and within normal limits. IMPRESSION: 1. There is again seen a left solid hypoechoic renal mass measuring 3.1 x 3.0 x 2.9 cm. This compares to 3.1 x 2.3 x 2.4 cm on the prior examination. If further imaging is warranted, an MRI may be obtained. 2. Bilateral renal cysts. 3. Large postvoid urinary bladder residual. DATA REPOSITORY:
== END 2025-06-19 01:37 ==
LOC: DI 01:17
PROVIDERS: PCP Family Medicine; Visit Provider Nurse Practitioner Gerontology
DX: N28.89 Other specified disorders of kidney and ureter (principal)
CPT/HCPCS: 76770

== ENCOUNTER → 2025-07-03 10:53 | Outpatient (BNVA) | payer MEDICARE, SELFPAY | PROVIDERS: PCP Family Medicine; Visit Provider Nurse Practitioner Gerontology | DX: N28.89 Other specified disorders of kidney and ureter (principal) | CPT/HCPCS: 99213 ==

== ENCOUNTER 2025-07-26 00:21 | Outpatient (CLI) | payer MEDICARE, SELFPAY ==
[2025-07-26 14:05] LABS: HCT 42.0 % (40.0-50.0); HGB 14.1 g/dL (13.5-17.5); MCH 32.0 pg (27.0-33.0); MCHC 33.6 % (32.0-36.0); MCV 96 fL (80-95); MPV 9.9 fL (8.0-11.0); Platelet Count 149 10^3/uL (130-400); RBC 4.40 10^6/uL (4.36-5.78); RDW 13.2 % (11.8-14.1); RDW-SD 46.8 fL; WBC 4.65 10^3/uL (4.4-10.8)
[2025-07-26 14:22] LABS: Estimated GFR 73.76 (mL/min/1.73m2); Potassium 4.3 mmol/L (3.5-5.1)
[2025-07-30 11:03] LABS: Lab Add On Test DONE
[2025-07-30 11:36] LABS: TSH (W/Ref FT4) 2.33 uIU/mL (0.36-3.74)
== END 2025-07-26 00:22 | disposition home or self-care (01) ==
LOC: LOS 00:21
PROVIDERS: PCP Family Medicine; Visit Provider Family Medicine
DX: R53.83 Other fatigue (principal); I10 Essential (primary) hypertension; E03.9 Hypothyroidism, unspecified
CPT/HCPCS: 36415; 85027; 82565; 84132; 84443

== ENCOUNTER → 2025-09-03 12:42 | Outpatient (BNVA) | payer MEDICARE, SELFPAY | PROVIDERS: PCP Family Medicine; Referring Provider Family Medicine; Visit Provider Psychiatry & Neurology Neurology | DX: M48.062 Spinal stenosis, lumbar region with neurogenic claudication (principal); G62.9 Polyneuropathy, unspecified; I10 Essential (primary) hypertension; R26.89 Other abnormalities of gait and mobility | CPT/HCPCS: 99214 ==

== ENCOUNTER → 2025-10-10 00:34 | Outpatient (CLI) | payer MEDICARE, SELFPAY ==
--- NOTE | 2025-10-10 12:30 | DI.US_ITS ---
APPROVED REPORT EXAM: Comprehensive 2D, Doppler, and color-flow Echocardiogram Patient Location: Out-Patient Environmental Programs Manager: Kari Sprinegr RDCS ([facility]) Indications: Ascending aortic dilation Other Information Study Quality: Adequate. Technically limited study due to body habitus subcostal imaging.. Conclusion Asymmetric left ventricular hypertrophy. Normal left ventricular chamber size. EF is 60%. Wall motion is normal Normal right ventricular size and function Severely enlarged left atrium. Moderately enlarged right atrium The aortic valve is sclerotic and trileaflet with mild regurgitation Mild mitral annular calcification. Mild mitral regurgitation Mild tricuspid regurgitation. Estimated right ventricular systolic pressure is 30 mmHg Dilated aortic root (4.2 cm) and ascending aorta, which measures 4.6 cm Wall motion Left Ventricle The left ventricle is normal size. The left ventricular systolic function is normal. The left ventricular ejection fraction is within the normal range. eccentric left ventricular hypertrophy. There is normal LV segmental wall motion. Technically limited LVEF is 60%. Right Ventricle Right ventricle is grossly normal in size. Right ventricular systolic function is grossly normal. Atria Left atrium is severely dilated. Right atrium is moderately dilated. The interatrial septum is intact with no evidence for an atrial septal defect. Aortic Valve The Aortic valve is sclerotic. Aortic valve is trileaflet. There is no aortic valvular stenosis. Mild aortic regurgitation. Mitral Valve Mild mitral annular calcification. No evidence of mitral valve stenosis. Mild mitral regurgitation. Tricuspid Valve The tricuspid valve is normal in structure. There is no tricuspid valve stenosis. Mild tricuspid regurgitation. The RVSP is 30.5 mmHg. Pulmonic Valve The pulmonary valve is normal in structure. There is no pulmonic valvular stenosis. Mild pulmonic regurgitation. Great Vessels Aortic root is mildly dilated. The ascending aorta is severely dilated. Aortic arch is not well visualized. IVC is normal in size and collapses >50% with inspiration. Pericardium Technically limited subcostal imaging. 2D Dimensions IVSD d PLAX 1.60 cm M: 0.6-1.2 Ao Root d 4.20 cm M: 3.1 - 3.7 LVPW d PLAX 1.40 cm M: 0.6 - 1.2 Ao Asc Diam d 4.60 cm M: 2.6 - 3.4 LVID d PLAX 5.41 cm M: 4.2 - 5.8 LVDs 3.70 cm M: 2.5 - 4.0 LV EF Teichholz 59.8 % FS 32.14 % LV EDV (Teich) 142.0 mL LV ESV (Teich) 57.1 mL Auto EF LV EDV A4C 192.8 mL LV EDV A2C 134.4 mL LV EDV BP 160.2 mL LV ESV A4C 78.5 mL LV ESV A2C 53.3 mL LV ESV BP 65.1 mL LVEF(%) A4C 59.3 % LVEF(%) A2C 60.3 % LVEF(%) BP 59.4 % LV SV A4C 114.3 ml LV SV A2C 81.1 ml LV SV BP 95.1 ml LV CO A4C 7.3 L/min LV CO A2C 4.3 L/min LV CO BP 5.8 L/min HR A4C 63.61 BPM HR A2C 52.71 BPM LV EDV Index (BP) LA Volume LA Length A4C 9.2 cm LA Length A2C 8.5 cm LA Area A4C s 47.82 cm2 LA Area A2C s 43.73 cm2 LA Vol A4C A-L 211.34 mL LA Vol A2C A-L 191.91 mL LA Vol Biplane A-L 209.9 mL LA Vol/BSA A4C A-L LA Vol/BSA A2C A-L LA Vol/BSA BP A-L 97.6 mL/m2 LA Vol A4C MOD 204.1 mL LA Vol A2C MOD 183.9 mL LA Vol BP MOD 201.7 mL RA Volume RA Area A4C 31.7 cm2 RA ESV A4C (A-L) 94.2mL RA Vol/BSA A4C A-L RA Length A4C 9.0 cm RA ESV A4C (MOD) 88.2mL LV Diastology MV E' medial 0.087 (>0.07 m/s) MV E Vmax 0.95 (0.4-1.3 m/s) MV E' lateral 0.144 (>0.1 m/s) Aortic Valve AoV Vmax 1.81 m/s LVOT Vmax 1.06 m/s AoV Peak Grad 36.5 mmHg LVOT Peak Grad 4.5 mmHg AoV Area (Vmax) 2.22 cm2 LVOT VTI 0.247 m AoV VTI 0.391 m LVOT Mean Grad 2.5 mmHg AoV Mean Michi. 1.24 m/s LVOT SV 93.86 mL AoV Mean Grad 7.2 mmHg LVOT Diam s 2.15 cm AoV Area (VTI) 2.40 cm2 Velocity Ratio 0.59 AR Decel [place] 1.0m/sec2 AR DT 3999 msec AR PHT 1160 msec AR Vmax 3.87 m/s Mitral Valve MV Vmax TIPS 0.94 m/s MV Mean Grad 1.2 (<2mmHg) MV Area PHT 3.90 cm2 MV VTI 0.184 m Pulmonary Valve PV Vmax 0.96 (0.5-1.5 m/s) RVOT Vmax 0.60 m/s PV Peak Grad 3.7 mmHg RVOT Peak Gr. 1.4 mmHg PV Mean Michi 0.61 m/s RVOT VTI 0.107 m PV Mean Grad 1.8 mmHg RVOT Mean Gr. 0.5 mmHg Tricuspid Valve RA Pressure 3.00 mmHg TR Vmax 2.62 m/s TV S' 0.11 m/s TR Peak Grad 27.4 mmHg RVSP (TR) 30.5 mmHg
== END ==
LOC: DI 00:34
PROVIDERS: PCP Family Medicine; Visit Provider Registered Nurse
DX: I71.21 Aneurysm of the ascending aorta, without rupture (principal); I51.7 Cardiomegaly
CPT/HCPCS: 93306